=== PATIENT | female | born 1960 | race Caucasian/White ===

== ENCOUNTER 2020-02-26 14:58 | Outpatient (REF) | payer OTHER, SELFPAY | END 2020-02-26 14:59 | disposition home or self-care (01) | LOC: HO.BBR 14:58 | PROVIDERS: PCP Family Medicine; Visit Provider Internal Medicine | DX: Z13.89 Encounter for screening for other disorder (principal) ==

== ENCOUNTER 2020-02-26 15:59 | Outpatient (REF) | payer SELFPAY ==
[2020-02-26 16:51] LABS: Cholesterol 202 mg/dL
== END 2020-02-26 16:00 | disposition home or self-care (01) ==
LOC: HO.LNC 15:59
PROVIDERS: Visit Provider Pathology Anatomic Pathology & Clinical Pathology
DX: Z13.89 Encounter for screening for other disorder (principal)
CPT/HCPCS: 36415; 82465

== ENCOUNTER 2020-09-14 10:24 | Outpatient (REF) | payer BC, SELFPAY | END 2020-09-14 10:25 | disposition home or self-care (01) | LOC: HO.BBR 10:24 | PROVIDERS: PCP Family Medicine; Visit Provider Internal Medicine | DX: Z13.89 Encounter for screening for other disorder (principal) ==

== ENCOUNTER 2021-03-17 11:04 | Outpatient (REF) | payer BC, SELFPAY | END 2021-03-17 11:05 | disposition home or self-care (01) | LOC: HO.BBR 11:04 | PROVIDERS: Visit Provider Internal Medicine | DX: Z13.89 Encounter for screening for other disorder (principal) ==

== ENCOUNTER 2021-08-16 10:50 | Outpatient (REF) | payer BC, SELFPAY | END 2021-08-16 10:51 | disposition home or self-care (01) | LOC: HO.BBR 10:50 | PROVIDERS: Visit Provider Internal Medicine | DX: Z13.89 Encounter for screening for other disorder (principal) ==

== ENCOUNTER 2022-01-09 10:44 | Outpatient (REF) | payer BC, SELFPAY | END 2022-01-09 10:45 | disposition home or self-care (01) | LOC: HO.BBR 10:44 | PROVIDERS: Visit Provider Internal Medicine | DX: Z13.89 Encounter for screening for other disorder (principal) ==

== ENCOUNTER 2022-06-12 10:50 | Outpatient (REF) | payer BC, SELFPAY | END 2022-06-12 10:51 | disposition home or self-care (01) | LOC: HO.BBR 10:50 | PROVIDERS: Visit Provider Internal Medicine | DX: Z13.89 Encounter for screening for other disorder (principal) ==

== ENCOUNTER 2023-01-22 13:47 | Outpatient (REF) | payer OTHER, SELFPAY | END 2023-01-22 13:48 | disposition home or self-care (01) | LOC: HO.BBR 13:47 | PROVIDERS: Visit Provider Internal Medicine | DX: Z13.89 Encounter for screening for other disorder (principal) ==

== ENCOUNTER 2023-07-23 13:16 | Outpatient (REF) | payer MEDICARE, SELFPAY | END 2023-07-23 13:17 | disposition home or self-care (01) | LOC: HO.BBR 13:16 | PROVIDERS: Visit Provider Internal Medicine | DX: Z13.89 Encounter for screening for other disorder (principal) ==

== ENCOUNTER 2023-08-21 11:23 | Outpatient (REF) | payer MEDICARE, SELFPAY | END 2023-08-21 11:24 | disposition home or self-care (01) | LOC: HO.BBR 11:23 | PROVIDERS: Visit Provider Internal Medicine | DX: Z13.89 Encounter for screening for other disorder (principal) ==

== ENCOUNTER 2024-03-26 09:43 | Outpatient (REF) | payer MEDICARE, SELFPAY ==
--- OUTSIDE RECORDS SUMMARY | 2024-03-26 10:04 | XMS_ITS | Encounter Summary ---
Author Organization [facility] Address [id number] [place] [phone] Care Team Providers Care Laborer [employer] Name Role Phone Beverly Tineo DO Primary Care Provider + Reason for Visit * Reason Onset Date Comments Request For Order(s) 03/17/2024 reg Encounter Details Date Type Department Care Team (Late st Contact Info) Description 03/17/2024 Telephone [facility] Hematology Oncology [address] [place] [phone] Gabriel Tripp MD [address] [place] [address] Request For Order(s) (reg) Social History Tobacco Use Types Packs/Day Years Used Date Smoking Tobacco: Never Smokeless Tobacco: Never Alcohol Use Standard Drinks/Week Comments Yes 0 (1 standard drink = 0.6 oz pur e alcohol) Comments Unknown Sex and Gender Information Value Date Recorded Sex Assigned at Not on file Legal Sex Female 6:44 PM EST Gender Identity Not on file Sexual Orientation Not on file documented as of this encounter Progress Notes * Scar Gilmore MA - 03/17/2024 10:14 AM EST Returned call to pt, informed her that new phlebotomy order has been faxed over. * Diane Ring - 03/17/2024 9:09 AM EST Pt calling she gets phlebotomys every 6 months, [facility] needs new order please send out thank you documented in this encounter Plan of Treatment Upcoming Encounters Date Type Department Care Team (Late st Contact Info) Description 08/20/2024 10:00 AM EDT Office Visit [facility] Hematology Oncology [address] [place] [phone] Gabriel Tripp MD [address] [place] [address] documented as of this encounter Visit Diagnoses Not on filedocumented in this encounter Care Teams Laborer [employer] Relationship Specialty Start Date End Date Beverly Tineo DO [address] [place] [address] PCP - General 08/31/22 documented as of this encounter
--- OUTSIDE RECORDS SUMMARY | 2024-03-26 10:04 | XMS_ITS | Encounter Summary ---
Author Organization [facility] Address [address] [place] [phone] Care Team Providers Care Table Assembler Name Role Phone Beverly Tineo DO Primary Care Provider + Encounter Details Date Type Department Care Team ([facility] st Contact Info) Description 03/31/2022 Orders Only Anesthesia [address] [place] [address] Heather Araujo, MEAT TRIMMER [address] [place] [phone] Social History Tobacco Use Types Packs/Day Years Used Date Smoking Tobacco: Former Cigarettes Comments:Quit 34 years ago Alcohol Use Standard Drinks/Week Comments Yes 0 (1 standard drink = 0.6 oz pur e alcohol) socially Comments Unknown Sex and Gender Information Value Date Recorded Sex Assigned at Not on file Legal Sex Female 10:56 AM EDT Gender Identity Not on file Sexual Orientation Not on file COVID-19 Exposure Response Date Recorded In the last 10 days, have yo u been in contact with someone who was confirmed or suspected to have Coronavirus/COVID-19? No / Unsure 03/31/2022 7:59 AM EST documented as of this encounter Plan of Treatment Not on file documented as of this encounter Visit Diagnoses Not on filedocumented in this encounter Care Teams Table Assembler Relationship Specialty Start Date End Date Beverly Tineo DO [address] [place] [phone] PCP - General Family Medicine 07/12/22 documented as of this encounter
--- OUTSIDE RECORDS SUMMARY | 2024-03-26 10:04 | XMS_ITS | Clinical Summary ---
Author Organization [facility] Address [address] [place] [phone] Phone Care Team Providers Care Table Keeper Name Role Phone Beverly Tineo Primary Care Provider + Allergies No known active allergies Medications divalproex (DEPAKOTE DR) 250 mg delayed release tablet Take 1 tablet (250 mg total) by mouth 2 (two) times daily. 250mg am 500pm 3 Active colestipoL (COLESTID) 1 gram tabletIndications :Change in bowel function,Fecal smearing,Full incontinence of feces,Fecal urgency Take 1 tablet (1 g total) by mouth 2 (two) times daily. 60 tablet 3 3 Active cholestyramine (QUESTRAN) 4 gram powderIndications :Fecal smearing,Full incontinence of feces,Fecal urgency,Change in bowel function Take 1 packet (4 g total) by mouth 2 (two) times daily with breakfast and dinner. 368.76 g 1 3 Active Active Problems No known active problems Social History Tobacco Use Types Packs/Day Years Used Date Smoking Tobacco: Former Cigarettes Q uit: 1988 Smokeless Tobacco: Never Tobacco Cessation:Counseling Given: Not Answered Comments:Quit 34 years ago Alcohol Use Standard Drinks/Week Comments Yes 0 (1 standard drink = 0.6 oz pur e alcohol) socially Interpersonal Safety Answer Date Record ed Is there anyone in your life that is hurting or threatening you in anyway? Not on file 05/16/2022 Physical Indicators of Abuse No evidence of phys ical abuse 05/16/2022 Comments Unknown Sex and Gender Information Value Date Recorded Sex Assigned at Not on file Legal Sex Female 10:56 AM EDT Gender Identity Not on file Sexual Orientation Not on file Last Filed Vital Signs Vital Sign Reading Time Taken Comments Blood Pressure 122/62 01/17/2023 10:04 AM EST Pulse 74 01/17/2023 10:04 AM EST Temperature 36.1 ??C (97 ??F) 01/17/2023 10:04 AM EST Respiratory Rate 10 04/19/2022 11:00 AM EDT Oxygen Saturation 98% 01/17/2023 10:04 AM EST Inhaled Oxygen Concentration - - Weight 75.3 kg (166 lb) 01/17/2023 10:04 AM EST Height 172.7 cm (5' 8 ) 01/17/2023 10:04 AM EST Body Mass Index 25.24 01/17/2023 10:04 AM EST Plan of Treatment Health Maintenance Due Date Last Done Comments HIV screening 1971 Hepatitis C screening 02/15/1976 Tetanus adult (Td q 10,TDAP once) 1978 Lipid disorder screening 1998 Diabetes screening 2003 Shingles vaccine (Shingrix) (1 of 2 - Shingrix (RZV) 2 Dose Standard Series) 02/15/2008 Pneumococcal Vaccine (50+ years) (1 of 1 - PCV) 2023 Influenza vaccine 09/06/2023 Covid-19 vaccine series ( season) 2023 05/13/2020, 04/15/2020 Breast cancer screening 06/10/2025 06/11/19 24, 06/11/2023, 06/07/2022, Additional history exists Colon cancer screening, Colonoscopy 10/10/2027 10/09/2017, 06/21/2016 RSV Discussion (1 - 1-dose 75+ series) 2033 Osteoporosis screening (bone density) Completed 06/07/2022, 06/07/2022 Cervical cancer screening Discontinued Meningococcal Vaccine Aged Out No kayli barbi eligible based on patient's age to complete this topic Medical Devices Implanted Type Area Flatwork Ironer Device Identifier Shelf Expiration Date Model / Serial / Lot Extension Percutaneous Extension Axonics 9009 - [id number] Implanted:Qty: 1 on 04/05/2022 by Raisa Che MD PhD at [facility] Implant Midline: BACK LOWER [employer] 06/09/2023 9009 / / [id number] Stimulator External Axonics Trial Stimulator - [id number] Implanted:Qty: 1 on 04/05/2022 by Raisa Che MD PhD at [facility] Implant Midline: [employer]OWER [employer] 04/06/2022 1601 / / [id number] Lead Tined Lead Kit Axonics - [id number] Implanted:Qty: 1 on 04/05/2022 by Raisa Che MD PhD at [facility] Implant Midline: BACK [employer]OWER [employer] 09/29/2024 1201 / / [id number] Neurostimulator Non Rechargeable Axonics F15 - [id number] Implanted:Qty: 1 on 04/19/2022 by Raisa Che MD PhD at [address] Implant Midline: Sacrum [employer] [id number] 12/20/2022 4101 / [id number] / [id number] Procedures Procedure Name Priority Date/Time Associated Diagnosis Comments COLONOSCOPY (IMAGES) Routine 10/09/2017 from Last 3 Months or Most Recently Relevant to Health Maintenance Results * Colonoscopy (10/09/2017) us Historical Provider GI PROCEDURE ORDERABLES l Result from Last 3 Months or Most Recently Relevant to Health Maintenance Insurance Member Subscriber Plan / Payer (Ef fective 2021-Present) Name:Ondina Soto Relation to Subscriber:Self Name:Ondina Soto Payer ID:[id number] (NAIC) Type:Not on file Address: [address] Member Subscriber Plan / Payer (Ef fective 2021-Present) Name:Ondina Soto Relation to Subscriber:Self Name:JuvenalfélixMalu valdovinosne Payer ID:[id number] (NAIC) Type:Not on file Address: [address] Member Subscriber Plan / Payer ( fective 2021-Present) Name:Ondina Soto Relation to Subscriber:Self Name:Ondina Soto Payer ID:[id number] (NAIC) Type:Not on file Address: [address] Care Teams Table Keeper Relationship Specialty Start Date End Date Beverly Tineo DO [address] [place] [phone] PCP - General Family Medicine 07/12/22
--- OUTSIDE RECORDS SUMMARY | 2024-03-26 10:04 | XMS_ITS | Encounter Summary ---
Author Organization [facility] Address [address] [place] [address] Care Team Providers Care Core Machine Tender Name Role Phone Beverly Tineo DO Primary Care Provider [phone] Adriano Schwab MD Unavailable [phone] Encounter Details Date Type Department Care Team (Late st Contact Info) Description 07/13/2022 Scanned Document [facility] [address] [place] [address] Beverly Tineo DO [address] [place], [place] [phone] Digestive Disease 07/12/22 Social History Tobacco Use Types Packs/Day Years Used Date Smoking Tobacco: Former Cigarettes 0.5 15 0 07/06/1973 - 07/06/1988 Smokeless Tobacco: Never Alcohol Use Standard Drinks/Week Comments Yes 1 (1 standard drink = 0.6 oz pur e alcohol) PHQ-2 Answer Date Recorded Patient Health Questionnaire-2 Score 0 04/06/2022 Comments No Sex and Gender Information Value Date Recorded Sex Assigned at Not on file Legal Sex Female 11:27 AM EDT Gender Identity Not on file Sexual Orientation Not on file documented as of this encounter Plan of Treatment Upcoming Encounters Date Type Department Care Team (Late Contact Info) Description 04/24/2024 8:00 AM EDT Office Visit [facility] [address] [place], [place] [phone] Beverly Tineo DO [address] [place] [address] Follow up in about 1 year (around 04/09/2024) for Preventive Adult Physical. documented as of this encounter Visit Diagnoses Not on filedocumented in this encounter Additional Health Concerns Assessment Noted Time PHQ-9 Depression Total Score: 1 04/07/19 23 2:04 PM EST documented as of this encounter Care Teams Core Machine Tender Relationship Specialty Start Date End Date Beverly Tineo DO [address] [place] [address] PCP - General Internal Medicine 09/08/20 Adriano Schwab MD [address] [facility] [address] [place] [phone] Referring Physician Gastroenterology 04/10/23 documented as of this encounter
--- OUTSIDE RECORDS SUMMARY | 2024-03-26 10:04 | XMS_ITS | Clinical Summary ---
Author Organization [facility] Address [address] [place] [id number] Care Team Providers Care Fur Floor Worker Name Role Phone Beverly Tineo DO Primary Care Provider [phone] Adriano Schwab MD Unavailable [phone] Allergies No known active allergies Medications clobetasoL (TEMOVATE) 0.05 % cream APPLY TWICE A DAY FOR TWO WEEKS TO ANKLES. 11/14/2021 Active Soolantra 1 % cream APPLY TO THE FACE ONCE A DAY 11/15/2021 Active psyllium (Daily Fiber, psyllium-aspart ,) 3.4 gram packet Take 1 packet by mouth 1 (one) time each day. Active oxyCODONE (Roxicodone) 5 mg immediate release tablet 12/13/2022 Acti ve estradioL (Estrace) 0.01 % (0.1 mg/gram) vaginal cream Insert into the vagina 1 (one) time each day if needed. 08/31/2022 Active colestipoL (Colestid) 1 gram tablet Take 1 tablet (1 g total) by mouth twice a day. 07/12/2022 Active cholestyramine (QUESTRAN) 4 gram powder Take 1 packet (4 g total) by mouth. 10/18/2022 Active acetaminophen (TYLENOL) 325 mg oral tablet Take 3 tablets (975 mg total) by mouth every 6 (six) hours if needed. 12/09/2022 Active divalproex (Depakote) 250 mg EC tablet TAKE 1 TABLET IN THE MORNING AND 2 TABLETS AT BEDTIME WITH FOOD 270 tablet 1 11/19/2023 Active Active Problems Problem Noted Date Diagnosed Date Rectal prolapse 12/04/2022 Pelvic pressure in female 02/01/2022 Post-viral cough syndrome 02/01/2022 Personal history of COVID-19 02/01/2022 Aneurysm of splenic artery 04/04/2021 Calcinosis, Raynaud phenomen on, esophageal dysfunction, sclerodactyly, and telangiectasia (CREST) syndrome 04/04/2021 Constipation 04/04/2021 Degeneration of intervertebral disc of lumbar re gion 04/04/2021 Esophageal dysmotility 04/04/2021 Female genital symptoms 04/04/2021 Incontinence of feces 04/04/2021 Microscopic hematuria 04/04/2021 Liver cyst 04/04/2021 Insomnia 04/04/2021 Multinodular goiter 04/04/2021 Seizure disorder (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/HCC) 10/31/2017 Scleroderma 10/31/2017 Immunizations Immunization Administration Dates Next Due INFLUENZA, HIGH DOSE SEASONAL, PRESERVATIVE FREE 11/27/2023 Moderna SARS-CoV-2 Vaccination 05/13/2020,2020 Family History Medical History Relation Name Comments Cancer Father Heart disease Maternal Grandfather Kashif williamson Heart disease Maternal Grandmother Robyn williamson Cancer Mother Irina quinteroic Colon cancer Mother Irina quinteroic Cancer Paternal Grandfather Cancer Paternal Grandmother Relation Name Status Comments Daughter Alive Father Maternal Grandfather Kashif williamson Maternal Grandmother Robyn williamson Mother Irina quinteroic Paternal Grandfather Paternal Grandmother Son 1 Alive Son 2 Alive Social History Tobacco Use Types Packs/Day Years Used Date Smoking Tobacco: Former Cigarettes 0.5 15 0 07/06/1973 - 07/06/1988 Smokeless Tobacco: Never Tobacco Cessation:Counseling Given: Not Answered Alcohol Use Standard Drinks/Week Comments Yes 1 (1 standard drink = 0.6 oz pur e alcohol) Humiliation, Afraid, Rape, and Kick questionnair e Answer Date Recorded Within the last year, have y ou been afraid of your partner or ex-partner? No 04/10/2023 Emotionally Abused Not on file 04/10/2023 Physically Abused Not on file 04/10/2023 Sexually Abused Not on file 04/10/2023 Overall Financial Resource Strain (CARDIA) Answe r Date Recorded How hard is it for you to pa y for the very basics like food, housing, medical care, and heating? Not hard at all 04/10/2023 PHQ-2 Answer Date Recorded Patient Health Questionnaire-2 Score 0 04/10/2023 Hunger Vital Sign Answer Date Recorded Within the past 12 months, y ou worried that your food would run out before you got the money to buy more. Never true 04/10/19 24 Ran Out of Food in the Last Year Not on file 04/10/2023 PRAPARE - Transportation Answer Date Re corded In the past 12 months, has l ack of transportation kept you from medical appointments or from getting medications? No 04/10/2023 Lack of Transportation (Non-Medical) Not on file 04/10/2023 Housing Stability Vital Sign Answer Enrique e Recorded Unable to Pay for Housing in the Last Year Not o n file 04/10/2023 Number of Places Lived in the Last Year Not on f ile 04/10/2023 In the last 12 months, was t here a time when you did not have a steady place to sleep or slept in a long term (including now)? No 04/10/2023 Comments No Sex and Gender Information Value Date Recorded Sex Assigned at Not on file Legal Sex Female 11:27 AM EDT Gender Identity Not on file Sexual Orientation Not on file Last Filed Vital Signs Vital Sign Reading Time Taken Comments Blood Pressure 118/72 04/10/2023 8:00 AM EST Pulse 78 04/10/2023 8:00 AM EST Temperature 36.6 ??C (97.9 ??F) 04/10/2023 8:00 AM ES T Respiratory Rate 16 04/10/2023 8:00 AM EST Oxygen Saturation 99% 04/10/2023 8:00 AM EST Inhaled Oxygen Concentration - - Weight 76.7 kg (169 lb) 04/10/2023 8:00 AM EST Height 171.5 cm (5' 7.52 ) 04/10/2023 8:00 AM ES T Body Mass Index 26.06 04/10/2023 8:00 AM EST Plan of Treatment Upcoming Encounters Date Type Department Care Team (Late st Contact Info) Description 04/24/2024 8:00 AM EDT Office Visit [facility] [place] [address] [facility] [place] [address] Beverly Tineo DO [address] [place] [address] Follow up in about 1 year (around 04/09/2024) for Preventive Adult Physical. Scheduled Referrals Name Type Priority Associated Diagnoses Order Schedule Ambulatory referral to Therapy Outpatient Referral Routine Spinal stenosis at L4-L5 level Bilateral leg pain Expected: 11/24/2021, Expires: 11/24/2022 Ambulatory referral to Therapy Outpatient Referral Routine Anal sphincter tear (healed) (nontraumatic) (old) Expected: 08/11/2020, Expires: 08/11/2021 Health Maintenance Due Date Last Done Comments CT Colonography 1958 FIT-DNA 1958 FIT 1958 FOBT 1960 Sigmoidoscopy 1958 Hepatitis A Vaccines (1 of 2 - Risk 2-dose series) 1977 Pneumococcal Vaccine: 50+ Years (1 of 2 - PCV) 1977 Tdap and Td Vaccines Adult 1977 Zoster Vaccines (1 of 2) 02/15/2008 RSV 60+ (1 - Risk 60-74 years 1-dose series) 2018 COVID-19 Vaccine ( season) 2023 05/13/2020, 04/15/2020 Fall Risk Screening 04/09/2024 04/10/2023 Medicare Annual Wellness Visit 04/09/2024 04/10/2023, 04/07/2022, 04/04/2021 Mammogram 06/10/2024 06/11/2023, 05/0 04/2022, 12/01/2020, Additional history exists Colonoscopy 10/10/2027 10/09/2017, 06/05, 06/21/2016 Colorectal Cancer Screening 10/10/2027 Osteoporosis Screening Completed 06/07/2022 Hepatitis C Screening Completed 04/17/2023 Influenza Vaccine Completed 11/27/2023 HIB Vaccines Aged Out No longer eligi ble based on patient's age to complete this topic HPV Vaccines Aged Out No longer eligi ble based on patient's age to complete this topic IPV Vaccines Aged Out No longer eligi ble based on patient's age to complete this topic Meningococcal Vaccine Aged Out No kayli barbi eligible based on patient's age to complete this topic RSV <20 Months Aged Out No longer kaia gible based on patient's age to complete this topic Procedures Procedure Name Priority Date/Time Associated Diagnosis Comments CBC WITH AUTO DIFFERENTIAL Routine 12/31/2023 11:54 AM EST Hereditary hemochromatosis (HCC) TIBC Routine 12/31/2023 11:54 AM EST Hereditary hemochromatosis (HCC) IRON Routine 12/31/2023 11:54 AM EST Hereditary hemochromatosis (HCC) FERRITIN Routine 12/31/2023 11:54 AM EST Hereditary hemochromatosis (HCC) CBC AND DIFFERENTIAL Routine 12/31/2023 11:54 AM EST Hereditary hemochromatosis (HCC) LIVER FUNCTION PANEL Routine 12/31/2023 11:54 AM EST Hereditary hemochromatosis (HCC) MG BREAST SCREENING TOMOSYNTHESIS BILATERAL Routine 06/11/2023 7:09 AM EDT Encounter for screening mammogram for malignant neoplasm of breast HEPATITIS C ANTIBODY, HIGH RISK SCREENING, W/ RFX TO HCV RNA Routine 04/17/2023 7:52 AM EDT Need for hepatitis C screening test DEXA BONE DENSITY Routine 06/07/2022 1:4 2 PM EDT Asymptomatic postmenopausal state from Last 3 Months or Most Recently Relevant to Health Maintenance Results * (ABNORMAL) TIBC (12/31/2023 11:54 AM EST) Transferrin 186(L) 250 - 380 mg/dL LAB CHEMISTRY METHOD 12/31/2023 4:37 PM EST [facility] TIBC 260(L) 297 - 504 ug/dL 12/31/2023 4:37 PM EST [facility] Blood Venous blood / Unknown Venipuncture / Unknown 12/31/2023 11:54 AM EST 12/31/2023 11:54 AM EST Garbiel Tripp MD LAB BLOOD ORDERABLES Final R esult LAB[facility] CT:[id number] [place] [address] * Liver Function Panel (12/31/2023 11:54 AM EST) Total Protein 6.6 5.7 - 8.2 g/dL LAB CHEMISTRY METHOD 12/31/2023 4:39 PM EST [facility] Comment:Please note referenc e range changes effective 12/18/2023. Albumin Level 4.2 3.2 - 4.8 g/dL LAB CHEMISTRY METHOD 12/31/2023 4:39 PM EST [facility] Comment:Please note referenc e range changes effective 12/18/2023. Total Bilirubin 0.6 0.1 - 1.2 mg/dL LAB CHEMISTRY METHOD 12/31/2023 4:39 PM EST [facility] Comment:The [employer] CH Tota l Bilirubin_2 (TBil_2) assay is based on a chemical oxidation method using vanadate as an oxidizing agent. Bilirubin, Direct 0.2 <=0.3 mg/dL LAB CHEMISTRY METHOD 12/31/2023 4:39 PM EST [facility] Comment: The [employer] Direct Bilirubin_2 (DBil_2) assay is based on a chemical oxidation method using vanadate as an oxidizing agent. Please note reference range changes effective 12/18/2023. ALT 12 10 - 49 U/L LAB CHEMISTRY METHOD 12/31/2023 4:39 PM EST [facility] Comment:Please note referenc e range changes effective 12/18/2023. AST 16 <34 U/L LAB CHEMISTRY METHOD 12/31/2023 4:39 PM EST [facility] Comment:Please note referenc e range changes effective 12/18/2023. Alkaline Phosphatase 48 28 - 130 U/L LAB CHEMISTRY METHOD 12/31/2023 4:39 PM EST [facility] Comment:Please note referenc e range changes effective 12/18/2023. Blood Venous blood / Unknown Venipuncture / Unknown 12/31/2023 11:54 AM EST 12/31/2023 11:54 AM EST us Gabriel Tripp MD LAB BLOOD ORDERABLES Final R esult LAB[facility] CT:[id number] [place] [address], * (ABNORMAL) CBC auto differential (12/31/2023 11:54 AM EST) Auto WBC 4.9 4.5 - 11.5 cells X 10*3/uL 12/31/2023 4:16 PM EST [facility] RBC 4.27 4.00 - 5.40 cells X 10*6/uL 12/31/2023 4:16 PM EST [facility] Hemoglobin 13.5 12.0 - 15.0 g/dL 12/31/2023 4:16 PM EST [facility] Hematocrit 41.1 35.0 - 49.0 % 12/31/2023 4:16 PM EST [facility] MCV 96.3(H) 80.0 - 94.0 fL 12/31/2023 4:16 PM EST [facility] MCH 31.6 26.0 - 32.0 pg 12/31/2023 4:16 PM EST [facility] MCHC 32.8 32.0 - 37.0 g/dL 12/31/2023 4:16 PM EST [facility] RDW (CV) 12.9 11.5 - 14.5 % 12/31/2023 4:16 PM EST [facility] RDW (SD) 46.0 36.0 - 48.8 fL 12/31/2023 4:16 PM EST [facility] Platelets 200 150 - 450 cells X 10*3/uL 12/31/2023 4:16 PM EST [facility] MPV 11.1 9.5 - 12.3 fL 12/31/2023 4:16 PM EST [facility] Granulocytes % 64.3 % 12/31/2023 4:16 PM EST [facility] Comment:Percent cell count r eference ranges have been removed. Per the [employer] recommendations, these ranges should not be reported when absolute cell count reference ranges are reported as this can lead to misinterpretation of CBC data. Immature Granulocytes % 0.2 % 12/31/2023 4:16 PM [facility] Comment:Immature Granulocyte s (percent and absolute counts) include neutrophilic metamyelocytes, myelocytes, and promyelocytes. Lymphocytes % 22.1 % 12/31/2023 4:16 PM EST [facility] Monocytes % 8.5 % 12/31/2023 4:16 PM EST [facility] Eosinophils % 3.7 % 12/31/2023 4:16 PM EST [facility] Basophils % 1.2 % 12/31/2023 4:16 PM EST [facility] Gran # 3.1 2.3 - 8.6 cells X 10*3/uL 12/31/2023 4:16 PM [facility] Comment:Please Note: Gran # is equivalent to ANC. IMM GRAN # 0.01 0.00 - 0.05 cells X 10*3/uL 12/31/2023 4:16 PM EST [facility] Eosinophils # 0.2 0.0 - 0.4 cells X 10*3/uL 12/31/2023 4:16 PM EST [facility] Lymphocytes # 1.1 0.8 - 4.8 cells X 10*3/uL 12/31/2023 4:16 PM EST [facility] MONO # 0.4 0.1 - 1.3 cells X 10*3/uL 12/31/2023 4:16 PM EST [facility] BASOPHIL # 0.1 0.0 - 0.2 cells X 10*3/uL 12/31/2023 4:16 PM [facility] Blood Venous blood / Unknown Venipuncture / Unknown 12/31/2023 11:54 AM EST 12/31/2023 11:54 AM EST Gabriel Tripp MD LAB BLOOD ORDERABLES Final R esult Performing Organization Address [facility] de Phone Number LABORATORY SERVICES CT:[id number] [place] [address], * Iron (12/31/2023 11:54 AM EST) Iron 150 50 - 170 ug/dL LAB CHEMISTRY METHOD 12/31/2023 4:39 PM EST [facility] Comment:Please note referenc e range changes effective 12/18/2023. Blood Venous blood / Unknown Venipuncture / Unknown 12/31/2023 11:54 AM EST 12/31/2023 11:54 AM EST Gabriel Tripp MD LAB BLOOD ORDERABLES Final R esult Performing Organization Address [facility] de Phone Number LABORATORY SERVICES CT:[id number] [place] [phone], [place] * Ferritin (12/31/2023 11:54 AM EST) Pathologist [facility] Ferritin 39.6 7.3 - 270.7 ng/mL LAB CHEMISTRY METHOD 12/31/2023 4:34 PM EST [facility] Comment:Please note referenc e range changes effective 12/18/2023. Blood Venous blood / Unknown Venipuncture / Unknown 12/31/2023 11:54 AM EST 12/31/2023 11:54 AM EST Gabriel Tripp MD LAB BLOOD ORDERABLES Final R esult Performing Organization Address [facility] de Phone Number LABORATORY SERVICES CT:[id number] [place] [phone], [place] * Mammogram Breast Screening Bilateral (06/11/2023 7:09 AM EDT) Anatomical Region Laterality Modality Breast Bilateral Mammography 06/12/2023 4:44 PM EDT Impressions 06/12/2023 4:47 PM EDT No evidence of malignancy. Annual screening mammogram is recommended. BREAST: ??Right RECOMMENDATION: ??Annual screening mammogram in 1 year BREAST: ??Left RECOMMENDATION: ??Annual screening mammogram in 1 year BI RADS : ??2, Benign Narrative 06/12/2023 4:47 PM EDT PROCEDURE: ??MG BREAST SCREENING TOMOSYNTHESIS BILATERAL CLINICAL INFORMATION: ??Encounter for screening mammogram for malignant neoplasm of breast, Breast cancer screening PROTOCOL: ??Routine mammogram including craniocaudal and mediolateral oblique views with Computer Aided Detection. Tomographic views were also obtained. COMPARISON: Prior exams dating back to 2018 BREAST DENSITY: There are scattered areas of fibroglandular density. FINDINGS: No suspicious mass, architectural distortion or calcifications. No significant interval change. Procedure Note Mroaima Sales MD - 06/12/2023 PROCEDURE: MG BREAST SCREENING TOMOSYNTHESIS BILATERAL CLINICAL INFORMATION: Encounter for screening mammogram for malignantneoplasm of breast, Breast cancer screening PROTOCOL: Routine mammogram including craniocaudal and mediolateraloblique views with Computer Aided Detection. Tomographic views were alsoobtained. COMPARISON: Prior exams dating back to 2018 BREAST DENSITY: There are scattered areas of fibroglandular density. FINDINGS: No suspicious mass, architectural distortion or calcifications. Nosignificant interval change. IMPRESSION: No evidence of malignancy. Annual screening mammogram is recommended. BREAST: Right RECOMMENDATION: Annual screening mammogram in 1 year BREAST: Left RECOMMENDATION: Annual screening mammogram in 1 year BI RADS : 2, Benign Beverly Tineo DO IMG BI PROCEDURES Final Re sult * Hepatitis C Antibody, Screening w/ RFX to HCV RNA (04/17/2023 7:52 AM EDT) Hep C Antibody, IgG Non-React annie Non-React annie 04/17/2023 12:14 PM EDT LAB[facility] Comment: Performed on Siemens Advia Centaur Not infected with HCV, unless recent infection is suspected or other evidence exists to indicate HCV infection. This assay can be affected by patients taking high dose biotin supplements (>5mg/day). An eight hour wait time or washout period is necessary for accurate test results following high doses of biotin Blood Venous blood / Unknown Venipuncture / Unknown 04/17/2023 7:52 AM EDT 04/17/2023 7:52 AM EDT us Beverly Tineo DO LAB BLOOD ORDERABLES Final Result LAB[facility]ORY [facility] CT:[id number] [place] [address], * DEXA Bone Density (06/07/2022 1:42 PM EDT) Anatomical Region Laterality Modality Other 06/07/2022 1:50 PM EDT Impressions 06/07/2022 1:50 PM EDT The bone density is within the normal range. [employer] (WHO) BONE DENSITY CRITERIA FOR OSTEOPOROSIS: T-SCORE =the standard deviation (SD) from the mean for healthy young adults. T-Score >-1 SD: Normal - maintain bone health via exercise and calcium. T-Score between -1.0 SD & -2.4 SD: ??Low bone mass or Osteopenia - Prevention is indicated. T-Score <-2.4 SD: ??Osteoporosis - Treatment indicated. T-Score <-3.5 SD: ??Severe osteoporosis with fragility fracture - Treatment is indicated. Narrative 06/07/2022 1:50 PM EDT PROCEDURE: ??DEXA BONE DENSITY CLINICAL INDICATION: Asymptomatic postmenopausal state, post-menopausal osteoporosis prevention, PROTOCOL: Dual energy absorptiometry of the Lumbar spine and left hip were performed. Bone density exam performed on a new [employer] Horizon W, DEXA scanner. ??Please note with a new DEXA scanner, small measurement variances may occur between scanners. ??Serial future exams ??will be compared to the new baseline exam on the new scanner. COMPARISON: None. FINDINGS: L1-L4: The bone density is 1.037 for a T score of -0.1. Left Proximal Hip: The bone density is 0.906 for a T score of -0.3. Left Femoral Neck: The bone density is 0.834 for a T score of -0.1. Procedure Note Roni Perera MD - 06/07/2022 PROCEDURE: DEXA BONE DENSITY CLINICAL INDICATION: Asymptomatic postmenopausal state, post- menopausalosteoporosis prevention, PROTOCOL: Dual energy absorptiometry of the Lumbar spine and left hip wereperformed. Bone density exam performed on a new [employer] Horizon W, DEXA scanner.Please note with a new DEXA scanner, small measurement variances may occurbetween scanners. Serial future exams will be compared to the newbaseline exam on the new scanner. COMPARISON: None. FINDINGS: L1-L4: The bone density is 1.037 for a T score of -0.1. Left Proximal Hip: The bone density is 0.906 for a T score of -0.3. Left Femoral Neck: The bone density is 0.834 for a T score of -0.1. IMPRESSION: The bone density is within the normal range. [employer] (WHO) BONE DENSITY CRITERIA FOR OSTEOPOROSIS: T-SCORE =the standard deviation (SD) from the mean for healthy youngadults. T-Score >-1 SD: Normal - maintain bone health via exercise and calcium. T-Score between -1.0 SD & -2.4 SD: Low bone mass or Osteopenia -Prevention is indicated. T-Score <-2.4 SD: Osteoporosis - Treatment indicated. T-Score <-3.5 SD: Severe osteoporosis with fragility fracture - Treatmentis indicated. Beverly Tineo DO IM DXA PROCEDURES Final R esult from Last 3 Months or Most Recently Relevant to Health Maintenance Insurance [place] [address] Care Teams Fur Floor Worker Relationship Specialty Start Date End Date Beverly Tineo DO [address] [place] [address] PCP - General Internal Medicine 09/08/20 Adriano Schwab MD [address] [place] [phone] Referring Physician Gastroenterology 04/10/23
--- OUTSIDE RECORDS SUMMARY | 2024-03-26 10:04 | XMS_ITS | Encounter Summary ---
Author Organization [facility] Address [address] [place] [address] Care Team Providers Care Digital Engineer Name Role Phone Beverly Tineo DO Primary Care Provider [phone] Adriano Schwab MD Unavailable [phone] Encounter Details Date Type Department Care Team (Late st Contact Info) Description 08/15/2023 Lab Requisition [facility] [address] [place] [address] Sonja Lopez, DOPE FIRER [address] [id number] Social History Tobacco Use Types Packs/Day Years [...] place to sleep or slept in a retirement (including now)? No 04/10/2023 Comments No Sex and Gender Information Value Date Recorded Sex Assigned at Not on file Legal Sex Female 11:27 AM EDT Gender Identity Not on file Sexual Orientation Not on file documented as of this encounter Plan of Treatment Upcoming Encounters Date Type Department Care Team (Late st Contact Info) Description 04/24/2024 8:00 AM EDT Office Visit [facility] [place] [address] [place] [address] Beverly Tineo DO [address] [place] [address] Follow up in about 1 year (around 04/09/2024) for Preventive Adult Physical. documented as of this encounter Procedures Procedure Name Priority Date/Time Associated Diagnosis Comments WOUND CULTURE,WITH GRAM STAIN Routine 08/15/2023 12:36 PM EDT documented in this encounter Results * (ABNORMAL) Wound Culture,With Gram Stain (08/15/2023 12:36 PM EDT) Wound Culture Moderate Growth Coagulase negative Staphylococcus (A) 08/17/2023 2:01 PM EDT LAB[facility]ORY [facility] Comment: Three colony types present No sensitivity performed per lab policy Gram Stain No WBC's seen 08/17/2023 2:01 PM EDT LAB[facility] Gram Stain Rare Epithelial cells per low power field 08/17/2023 2:01 PM EDT LAB[facility] Gram Stain No organisms observed 08/17/2023 2:01 PM EDT LAB[facility] Comment:Superficial specimen - no evidence of inflammation- not cultured for anaerobes. Swab Chin structure / Unknown 08/15/2023 12:36 PM EDT 08/15/2023 7:30 PM EDT us Sonja Lopez DOPE FIRER LAB MICROBIOLOGY - GENERAL ORDER DOV Final Result LAB[facility]ORY SERVICES CT:[id number] [place] [address] documented in this encounter Visit Diagnoses Not on filedocumented in this encounter Additional Health Concerns Assessment Noted Time PHQ-9 Depression Total Score: 3 04/10/19 24 8:09 AM EST documented as of this encounter Care Teams Digital Engineer Relationship Specialty Start Date End Date Beverly Tineo DO [address] [place] [address] PCP - General Internal Medicine 09/08/20 Adriano Schwab MD [address] [place] [phone] Referring Physician Gastroenterology 04/10/23 documented as of this encounter
--- OUTSIDE RECORDS SUMMARY | 2024-03-26 10:04 | XMS_ITS | Encounter Summary ---
Author Organization [facility] [facility] Address [address] [place] [address] Care Team Providers Care Rn Manager Name Role Phone Beverly Tineo DO Primary Care Provider +1- [phone] Adriano Schwab MD Unavailable [phone] Encounter Details Date Type Department Care Team (Late st Contact Info) Description 07/24/2023 Scanned Document [facility] [place] [address] [place], [place] [address] Beverly Tineo DO [address] [place], [place] [address] [facility] 07/24/23 Social History Tobacco Use Types Packs/Day Years [...] place to sleep or slept in a half-way (including now)? No 04/10/2023 Comments No Sex and Gender Information Value Date Recorded Sex Assigned at Not on file Legal Sex Female 11:27 AM EDT Gender Identity Not on file Sexual Orientation Not on file documented as of this encounter Plan of Treatment Upcoming Encounters Date Type Department Care Team (Late st Contact Info) Description 04/24/2024 8:00 AM EDT Office Visit [facility] Primary [facility] [address] [place] [address] Beverly Tineo DO [address] [place] [address] Follow up in about 1 year (around 04/09/2024) for Preventive Adult Physical. documented as of this encounter Visit Diagnoses Not on filedocumented in this encounter Additional Health Concerns Assessment Noted Time PHQ-9 Depression Total Score: 3 04/10/19 24 8:09 AM EST documented as of this encounter Care Teams Rn Manager Relationship Specialty Start Date End Date Beverly Tineo DO [address] [place] [address] PCP - General Internal Medicine 09/08/20 Adriano Schwab MD [address] [place] [phone] Referring Physician Gastroenterology 04/10/23 documented as of this encounter
--- OUTSIDE RECORDS SUMMARY | 2024-03-26 10:04 | XMS_ITS | Encounter Summary ---
Author Organization [facility] Address [address] [place] [address] Care Team Providers Care Title Processor Name Role Phone Beverly Tineo Primary Care Provider + Reason for Visit * Reason Comments Medication Refill Encounter Details Date Type Department Care Team (Late st Contact Info) Description 08/03/2022 Refill [facility] [address] [facility], [address] [place] [address] Adriano Schwab MD [address] [place], [place] [phone] Medication Refill Social History Tobacco Use Types Packs/Day Years Used Date Smoking Tobacco: Former Cigarettes Q uit: 1988 Smokeless Tobacco: Never Comments:Quit 34 years ago Alcohol Use Standard [...] documented as of this encounter Visit Diagnoses Diagnosis Change in bowel function Other symptoms involving digestive system Fecal smearing Full incontinence of feces Fecal urgency documented in this encounter Care Teams Title Processor Relationship Specialty Start Date End Date Beverly Tineo DO [address] [place] [address] PCP - General Family Medicine 07/12/22 documented as of this encounter
--- OUTSIDE RECORDS SUMMARY | 2024-03-26 10:04 | XMS_ITS | Encounter Summary ---
Author Organization [facility] Address [address] [place] [address] Care Team Providers Care Course Developer Name Role Phone Beverly Tineo DO Primary Care Provider +1- [phone] Adriano Schwab MD Unavailable [phone] Encounter Details Date Type Department Care Team (Late st Contact Info) Description 07/26/2022 Scanned Document [facility] [address] [place] [address] Beverly Tineo DO [address] [place], [place] [address] Gastro 07/25/22 Social History Tobacco Use Types Packs/Day Years [...] Description 04/24/2024 8:00 AM EDT Office Visit [facility] [address] [place], [place] [address] Beverly Tineo DO [address] [place] [address] Follow up in about 1 year (around 04/09/2024) for Preventive Adult Physical. documented as of this encounter Visit Diagnoses Not on filedocumented in this encounter Additional Health Concerns Assessment Noted Time PHQ-9 Depression Total Score: 1 04/07/19 23 2:04 PM EST documented as of this encounter Care Teams Course Developer Relationship Specialty Start Date End Date Beverly Tineo DO [address] [place] [address] PCP - General Internal Medicine 09/08/20 Adriano Schwab MD [address] [facility] [address] [place] [address] Referring Physician Gastroenterology 04/10/23 documented as of this encounter
--- OUTSIDE RECORDS SUMMARY | 2024-03-26 10:04 | XMS_ITS | Encounter Summary ---
Author Organization [facility] Address [address] [place] [address] Care Team Providers Care Manager Personnel Selection Name Role Phone Beverly Tineo DO Primary Care Provider +1- [phone] Adriano Schwab MD Unavailable [phone] Encounter Details Date Type Department Care Team (Late st Contact Info) Description 08/21/2023 Scanned Document [facility] Primary Care [place] [address] [place], [place] [address] Beverly Tineo DO [address] [place], [place] [address] Hematology 08/21/23 Social History Tobacco Use Types Packs/Day Years [...] place to sleep or slept in a longterm (including now)? No 04/10/2023 Comments No Sex and Gender Information Value Date Recorded Sex Assigned at Not on file Legal Sex Female 11:27 AM EDT Gender Identity Not on file Sexual Orientation Not on file documented as of this encounter Plan of Treatment Upcoming Encounters Date Type Department Care Team (Late st Contact Info) Description 04/24/2024 8:00 AM EDT Office Visit [facility] Primary [facility] [address] [place] [address] Beverly Tineo DO [address] [place] [address] Follow up in about 1 year (around 04/09/2024) for Preventive Adult Physical. documented as of this encounter Visit Diagnoses Not on filedocumented in this encounter Additional Health Concerns Assessment Noted Time PHQ-9 Depression Total Score: 3 04/10/19 24 8:09 AM EST documented as of this encounter Care Teams Manager Personnel Selection Relationship Specialty Start Date End Date Beverly Tineo DO [address] [place] [address] PCP - General Internal Medicine 09/08/20 Adriano Schwab MD [address] [place] [phone] Referring Physician Gastroenterology 04/10/23 documented as of this encounter
--- OUTSIDE RECORDS SUMMARY | 2024-03-26 10:05 | XMS_ITS | Encounter Summary ---
Author Organization [facility] Address [address] [place] [address] Care Team Providers Care Service Delivery Director Name Role Phone Beverly Tineo DO Primary Care Provider +1- [phone] Adriano Schwab MD Unavailable [phone] Encounter Details Date Type Department Care Team (Late st Contact Info) Description 11/17/2020 Procedure Pass [facility] Radiology, [facility] (Ultrasound) [address] [place] [id number] Social History Tobacco Use Types Packs/Day Years Used Date Smoking Tobacco: Former Smokeless Tobacco: Never Alcohol Use Standard Drinks/Week Comments Yes 0 (1 standard drink = 0.6 oz pur e alcohol) Comments No Sex and Gender Information Value Date Recorded Sex Assigned at Not on file Legal Sex Female 11:27 AM EDT Gender Identity Not on file Sexual Orientation Not on file documented as of this encounter Plan of Treatment Upcoming Encounters Date Type Department Care Team (Late st Contact Info) Description 04/24/2024 8:00 AM EDT Office Visit [facility] Primary Care [place] [address] [place], [place] [address] Beverly Tineo DO [address] [place], [place] [address] Follow up in about 1 year (around 04/09/2024) for Preventive Adult Physical. documented as of this encounter Visit Diagnoses Not on filedocumented in this encounter Additional Health Concerns Infection Onset Date Last Indicated Resolved Time COVID-19 (rule out) 05/30/2021 05/30/2021 05/31/19 22 7:14 PM EDT documented as of this encounter Care Teams Service Delivery Director Relationship Specialty Start Date End Date Beverly Tineo DO [address] [place] [address] PCP - General Internal Medicine 09/08/20 Adriano Schwab MD [address] [facility] [address] [facility] [address] [place] [address] Referring Physician Gastroenterology 04/10/23 documented as of this encounter
--- OUTSIDE RECORDS SUMMARY | 2024-03-26 10:05 | XMS_ITS | Encounter Summary ---
Author Organization [facility] Address [address] [place] [address] Care Team Providers Care M1 Armor Crewman Name Role Phone Beverly Tineo DO Primary Care Provider +1- [phone] Adriano Schwab MD Unavailable [phone] Encounter Details Date Type Department Care Team (Late st Contact Info) Description 11/18/2020 Ancillary Orders [facility] [address] [place] [phone] Provider, MD Flako [address] [place] [phone] Social History Tobacco Use Types Packs/Day Years [...] Description 04/24/2024 8:00 AM EDT Office Visit [facility] Primary Care [place] [address] [place], [place] [address] Beverly Tineo DO [address] [place], [place] [address] Follow up in about 1 year (around 04/09/2024) for Preventive Adult Physical. documented as of this encounter Results * MG TRANSFER OF OUTSIDE FILMS (11/18/2020 12:10 AM EDT) Narrative IMAGING - 11/18/2020 12:03 PM EDT This order has been auto-finalized and does not contain a result. Procedure Note Chinmay Vazquez, RT - 11/18/2020 This order has been auto-finalized and does not contain a result. us Cutover Provider IMG BI PROCEDURES Final Resu lt Performing Organization Address [facility] Co de Phone Number IMAGING * MG TRANSFER OF OUTSIDE FILMS (11/18/2020 12:05 AM EDT) Narrative IMAGING - 11/18/2020 12:02 PM EDT This order has been auto-finalized and does not contain a result. us Cutover Provider MD DAVIS BI PROCEDURES Final Resu lt Performing Organization Address [facility] Co de Phone Number IMAGING * MG TRANSFER OF OUTSIDE FILMS (11/18/2020 12:00 AM EDT) Narrative IMAGING - 11/18/2020 12:02 PM EDT This order has been auto-finalized and does not contain a result. Procedure Note Chinmay Vazquez, RT - 11/18/2020 This order has been auto-finalized and does not contain a result. us Cutover Provider IMG BI PROCEDURES Final Resu lt Performing Organization Address [facility] Co de Phone Number IMAGING documented in this encounter Visit Diagnoses Not on filedocumented in this encounter Additional Health Concerns Infection Onset Date Last Indicated Resolved Time COVID-19 (rule out) 05/30/2021 05/30/2021 05/31/19 22 7:14 PM EDT documented as of this encounter Care Teams M1 Armor Crewman Relationship Specialty Start Date End Date Beverly Tineo DO 147 [place] [address] PCP - General Internal Medicine 09/08/20 Adriano Schwab MD [address] [facility] [address] [place] [address] Referring Physician Gastroenterology 04/10/23 documented as of this encounter
--- OUTSIDE RECORDS SUMMARY | 2024-03-26 10:05 | XMS_ITS | Encounter Summary ---
Author Organization [facility] Address [address] [place] [address] Care Team Providers Care Detention Sergeant Name Role Phone Beverly Tineo DO Primary Care Provider +1- [phone] Adriano Schwab MD Unavailable [phone] Encounter Details Date Type Department Care Team (Late Contact Info) Description 05/24/2021 Procedure Pass [facility] ([place] Scan) [address] [place] [id number] Social History Tobacco Use Types Packs/Day Years Used Date Smoking Tobacco: Former Smokeless Tobacco: Never Alcohol Use Standard Drinks/Week Comments Yes 0 (1 standard drink = 0.6 oz pur e alcohol) PHQ-2 Answer Date Recorded Patient Health Questionnaire-2 Score 0 04/04/2021 Comments No Sex and Gender Information Value Date Recorded Sex Assigned at Not on file Legal Sex Female 11:27 AM EDT Gender Identity Not on file Sexual Orientation Not on file COVID-19 Exposure Response Date Recorded In the last month, have you been in contact with someone who was confirmed or suspected to have Coronavirus / COVID-19? No / Unsure 05/24/2021 3:00 PM EDT documented as of this encounter Plan of Treatment Upcoming Encounters Date Type Department Care Team (Late Contact Info) Description 04/24/2024 8:00 AM EDT Office Visit [facility] Primary Care [place] [address] [place], [place] [address] Beverly Tineo DO [address] [place], [place] [phone] Follow up in about 1 year (around 04/09/2024) for Preventive Adult Physical. documented as of this encounter Visit Diagnoses Not on filedocumented in this encounter Additional Health Concerns Infection Onset Date Last Indicated Resolved Time COVID-19 (rule out) 05/30/2021 05/30/2021 05/31/19 22 7:14 PM EDT Assessment Noted Time PHQ-9 Depression Total Score: 2 04/04/19 22 7:42 AM EST documented as of this encounter Care Teams Detention Sergeant Relationship Specialty Start Date End Date Beverly Tineo DO [address] [place] [address] PCP - General Internal Medicine 09/08/20 Adriano Schwab MD [address] [address] [place] [address] Referring Physician Gastroenterology 04/10/23 documented as of this encounter
--- OUTSIDE RECORDS SUMMARY | 2024-03-26 10:05 | XMS_ITS | Clinical Summary ---
Author Organization [facility] Address [address] [place] [address] Care Team Providers Care Tree Killer Name Role Phone Beverly Tineo [place] GALVEZ Primary Care Provider +1- [phone] Allergies No known active allergies Medications Medication Sig Dispensed Refills Start Date End Date Status divalproex (DEPAKOTE) 250 MG EC tablet Take 250 mg by mouth 2 (two) times a day. 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 Social History Tobacco Use Types Packs/Day Years Used Date Smoking Tobacco: Never Smokeless Tobacco: Never Alcohol Use Standard Drinks/Week Comments Yes 0 (1 standard drink = 0.6 oz pur e alcohol) social Sex and Gender Information Value Date Recorded Sex Assigned at Not on file Gender Identity Not on file Sexual Orientation Not on file Job Start Date Occupation Industry Not on file Not on file Not on file Last Filed Vital Signs Vital Sign Reading Time Taken Comments Blood Pressure 114/71 08/21/2023 10:06 AM EDT Pulse 76 08/21/2023 10:06 AM EDT Temperature 36.6 ??C (97.9 ??F) 08/21/2023 10:06 AM E DT Respiratory Rate - - Oxygen Saturation 100% 08/21/2023 10:06 AM EDT Inhaled Oxygen Concentration - - Weight 78.5 kg (173 lb) 08/21/2023 10:06 AM EDT Height 172.7 cm (5' 8 ) 07/20/2021 11:16 AM EDT Body Mass Index 26.3 07/20/2021 11:16 AM EDT Plan of Treatment Health Maintenance Due Date Last Done Comments Depression Screening 1970 Preventative Health Evaluation 02/15/1976 DTap / Tdap / Td (1 - Tdap) 1977 Colon Cancer Screening (Colonoscopy) 2003 Breast Cancer Screening (Mammogram) 02/15/2008 Shingrix-Zoster Vaccine (1 o f 2) 02/15/2008 Fall Risk Assessment 2023 Osteoporosis Screening (DEXA Scan) 2023 Pneumococcal Vaccine (1 of 1 - PCV) 2023 COVID-19 Vaccine (3 - 2023-2 5 season) 2023 05/13/2020, 04/15/2020 Influenza Vaccine (#1) 2023 RSV Adult > 60+ Yrs or (1 - 1-dose 75+ series) 2033 Hepatitis C Screening Completed 04/17/2023 Hepatitis B Vaccines Aged Out No long er eligible based on patient's age to complete this topic RSV Ped < 20 months Aged Out No longe r eligible based on patient's age to complete this topic Care Teams Tree Killer Relationship Specialty Start Date End Date Beverly Tineo DO [address] [facility] 1 [facility] [place] [phone] PCP - General Hospitalist Medicine 08/31/22
--- OUTSIDE RECORDS SUMMARY | 2024-03-26 10:05 | XMS_ITS | Clinical Summary ---
Author Organization [facility] Address [address] [place] [address] Care Team Providers Care Occupational Health Technician Name Role Phone Beverly Tineo Primary Care Provider + Allergies No known active allergies Medications divalproex (DEPAKOTE) [address] tablet Take 1 tablet (250 mg total) by mouth 2 (two) times a day. 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 10/31/2017 Encounters Date Type Department Care Team Description 03/17/2024 Telephone [facility] Hematology Oncology [address] [place] [address] Gabriel Tripp MD Request For Order(s) (reg) from Last 3 Months Immunizations Name Administration Dates Next Due Moderna SARS-CoV-2 COVID-19, mRNA, LNP-S, preservative free 05/13/2020,04/15/2020 SARS-COV-2 (COVID-19) Vaccine, Unspecified 05/13,04/15/2020 Surgical History Surgery Date Site/Laterality Comments APPENDECTOMY PROCEDURE:APPENDECTOMY Medical History Medical History Date Comments Hemochromatosis DX:Hemochromatos is Seizures (CMS/HCC) DX:Seizures ( HCC) GERD (gastroesophageal reflux disease) DX:GERD (gastroesophageal reflux disease) Vitamin D deficiency DX:Vitamin D deficiency Lumbar radiculopathy DX:Lumbar r adiculopathy Chronic allergic conjunctivitis DX:Chronic allergic conjunctivitis Social History Tobacco Use Types Packs/Day Years Used Date Smoking Tobacco: Never Smokeless Tobacco: Never Alcohol Use Standard Drinks/Week Comments Yes 0 (1 standard drink = 0.6 oz pur e alcohol) Comments Unknown Sex and Gender Information Value Date Recorded Sex Assigned at Not on file Legal Sex Female 6:44 PM EST Gender Identity Not on file Sexual Orientation Not on file Obstetrics History Last Filed Vital Signs Vital Sign Reading Time Taken Comments Blood Pressure 114/71 08/21/2023 10:06 AM EDT Sitting Left arm Pulse 76 08/21/2023 10:06 AM EDT Temperature - - Respiratory Rate - - Oxygen Saturation - - Inhaled Oxygen Concentration - - Weight 78.5 kg (173 lb) 08/21/2023 10:0 6 AM EDT Height 172.7 cm (5' 8 ) 07/20/2021 11:1 6 AM EDT Body Mass Index 26.3 07/20/2021 11:16 AM EDT Plan of Treatment Upcoming Encounters Date Type Department Care Team (Late st Contact Info) Description 08/20/2024 10:00 AM EDT Office Visit [facility] Hematology Oncology [address] [place] [phone] Gabriel Tripp MD [address] [place] [address] Health Maintenance Due Date Last Done Comments Breast Cancer Screening 1958 DTaP,Tdap,and Td Vaccines (1 - Tdap) 1977 Pneumococcal Vaccine: 50+ Years (1 of 1 - PCV) 02/15/2008 Zoster Vaccines (1 of 2) 02/15/2008 Colorectal Cancer Screening: Colonoscopy 01/12/2022 Depression Screening 01/12/2022 Medicare Annual Wellness Visit 01/12/2022 Osteoporosis Screening (Bone Density Screening) 01/12/2022 Social Influencers of Health Screening 01/12/2022 Falls Risk Assessment 2023 COVID-19 Vaccine ( season) 2023 05/13/2020, 05/13/2020, 04/15/2020, Additional history exists Influenza Vaccine (#1) 2023 Cholesterol Screening (Lipid Panel) 04/16/2028 04/17/2023 RSV Immunization Patients 60+ Years Old (1 - 1-dose 75+ series) 2033 Hepatitis C Screening Completed 04/17/2023 HIB Vaccines Aged Out No longer eligi ble based on patient's age to complete this topic HPV Vaccines Aged Out No longer eligi ble based on patient's age to complete this topic Hepatitis A Vaccines Aged Out No long er eligible based on patient's age to complete this topic Hepatitis B Vaccines Aged Out No long er eligible based on patient's age to complete this topic IPV Vaccines Aged Out No longer eligi ble based on patient's age to complete this topic MMR Vaccines Aged Out No longer eligi ble based on patient's age to complete this topic Meningococcal ACWY Vaccine Aged Out N o longer eligible based on patient's age to complete this topic Meningococcal B Vacine Aged Out No lo nger eligible based on patient's age to complete this topic RSV Immunization Patients Under 20 months Aged Out No longer eligible based on patient's age to complete this topic Varicella Vaccines Aged Out No longer eligible based on patient's age to complete this topic Procedures Procedure Name Priority Date/Time Associated Diagnosis Comments HEPATITIS C SCREENING Routine 04/17/2023 LIPID PANEL Routine 04/17/2023 from Last 3 Months or Most Recently Relevant to Health Maintenance Results * Hepatitis C Screening (04/17/2023) Hepatitis C Screening abstracted Historical Provider HEALTH MAINTENANCE Final Result * Lipid panel (04/17/2023) LDL/HDL Ratio 0 Comment:no interpretation Triglycerides 0 mg/dL Comment:no interpretation Cholesterol 0 mg/dL Comment:no interpretation HDL 0 mg/dL Comment:no interpretation LDL Cholesterol 0 mg/dL Comment:no interpretation Blood Venous blood specimen / Unknown Historical Provider LAB BLOOD ORDERABLES l Result from Last 3 Months or Most Recently Relevant to Health Maintenance Insurance [employer] MEDICARE Care Teams Occupational Health Technician Relationship Specialty Start Date End Date Beverly Tineo DO [address] [place] [address] PCP - General 08/31/22
--- OUTSIDE RECORDS SUMMARY | 2024-03-26 10:05 | XMS_ITS | Encounter Summary ---
Author Organization [facility] Address [address] [place] [address] Care Team Providers Care Wire Spinner Name Role Phone Beverly Tineo DO Primary Care Provider +1- [phone] Adriano Schwab MD Unavailable [phone] Encounter Details Date Type Department Care Team (Late st Contact Info) Description 05/10/2021 Scanned Document [facility] [address] [place] [address] Beverly Tineo DO [address] [place], [place] [address] [facility] 05/05/2021 Social History Tobacco Use Types Packs/Day Years [...] Description 04/24/2024 8:00 AM EDT Office Visit [facility] [address] [facility], [place] [address] Beverly Tineo DO [address] [place], [place] [address] Follow up in about 1 year (around [...] documented as of this encounter Care Teams Wire Spinner Relationship Specialty Start Date End Date Beverly Tineo DO [address] [place] [address] PCP - General Internal Medicine 09/08/20 Adriano Schwab MD [address] [place] [address] [place] [phone] Referring Physician Gastroenterology 04/10/23 documented as of this encounter
--- OUTSIDE RECORDS SUMMARY | 2024-03-26 10:05 | XMS_ITS | Encounter Summary ---
Author Organization [facility] Address [address] [place] [address] Care Team Providers Care Virology Teacher Name Role Phone Beverly Tineo DO Primary Care Provider +1- [phone] Adriano Schwab MD Unavailable [phone] Encounter Details Date Type Department Care Team (Late st Contact Info) Description 11/23/2021 Scanned Document [facility] [address] [place] [address] Beverly Tineo DO [address] [place], [place] [address] Orthopedic 11/15/21 Social History Tobacco Use Types Packs/Day Years [...] Description 04/24/2024 8:00 AM EDT Office Visit [facility] [address] [facility] [place] [address] Beverly Tineo DO [address] [place], [place] [address] Follow up in about 1 year (around 04/09/2024) for Preventive Adult Physical. documented as of this encounter Visit Diagnoses Not on filedocumented in this encounter Additional Health Concerns Assessment Noted Time PHQ-9 Depression Total Score: 2 04/04/19 22 7:42 AM EST documented as of this encounter Care Teams Virology Teacher Relationship Specialty Start Date End Date Beverly Tineo DO [address] [place] [address] PCP - General Internal Medicine 09/08/20 Adriano Schwab MD [address] [place] [address] Referring Physician Gastroenterology 04/10/23 documented as of this encounter
--- OUTSIDE RECORDS SUMMARY | 2024-03-26 10:05 | XMS_ITS | Encounter Summary ---
Author Organization [facility] Address [address] [place] [address] Care Team Providers Care Vulnerability Researcher Name Role Phone Beverly Tineo DO Primary Care Provider +1- [phone] Adriano Schwab MD Unavailable [phone] Encounter Details Date Type Department Care Team (Late Contact Info) Description 09/01/2022 Scanned Document [facility] [address] [place] [address] Beverly Tineo DO [address] [place] [address] [id number] [facility] Dr. Rios 08/31/22 Social History Tobacco Use Types Packs/Day Years [...] Description 04/24/2024 8:00 AM EDT Office Visit [facility] [address] [facility], [place] [phone] Beverly Tineo DO [address] [place] [address] Follow up in about 1 year (around 04/09/2024) for Preventive Adult Physical. documented as of this encounter Visit Diagnoses Not on filedocumented in this encounter Additional Health Concerns Assessment Noted Time PHQ-9 Depression Total Score: 1 04/07/19 23 2:04 PM EST documented as of this encounter Care Teams Vulnerability Researcher Relationship Specialty Start Date End Date Bevelry Tineo DO [address] [place] [address] PCP - General Internal Medicine 09/08/20 Adriano Schwab MD [address] [employer] [address] [place] [address] Referring Physician Gastroenterology 04/10/23 documented as of this encounter
--- OUTSIDE RECORDS SUMMARY | 2024-03-26 10:05 | XMS_ITS | Encounter Summary ---
Author Organization [facility] and [facility] Address [address] [place] [phone] Care Team Providers Care Coat Hanger Shaper Machine Operator Name Role Phone Beverly Tineo DO Primary Care Provider + Encounter Details Date Type Department Care Team ([facility] Contact Info) Description 11/30/2021 Scanned Document [facility] SCHEDULING [address] [place], [place] [phone] Provider, Historical . Social History Tobacco Use Types Packs/Day Years Used Date Smoking Tobacco: Never Assessed Comments Unknown Sex and Gender Information Value Date Recorded Sex Assigned at Not on file Legal Sex Female 10:56 AM EDT Gender Identity Not on file Sexual Orientation Not on file documented as of this encounter Plan of Treatment Not on file documented as of this encounter Procedures Procedure Name Priority Date/Time Associated Diagnosis Comments ANORECTAL MANOMETRY Routine 05/25/2020 PATHOLOGY REPORT (L) Routine 03/10/2019 SIGMOIDOSCOPY (FLEX SIG) (IMAGES) Routine 03/10/2019 PATHOLOGY REPORT (L) Routine 10/09/2017 COLONOSCOPY (IMAGES) Routine 10/09/2017 EGD (IMAGES) Routine 10/09/2017 COLONOSCOPY (IMAGES) Routine 06/21/2016 PATHOLOGY REPORT (L) Routine 06/20/2016 documented in this encounter Results * Anorectal Manometry (05/25/2020) us Historical Provider GI PROCEDURE ORDERABLES l Result * Sigmoidoscopy (Flex Sig) (03/10/2019) Result [facility] Provider GI PROCEDURE ORDERABLES l Result * Pathology report (L) (03/10/2019) Blood Result [facility] Provider PATHOLOGY/CYTOLOGY ORDERABLE S Final Result * Colonoscopy (10/09/2017) Result [facility] Provider GI PROCEDURE ORDERABLES l Result * EGD (10/09/2017) Result [facility] Provider GI PROCEDURE ORDERABLES l Result * Pathology report (L) (10/09/2017) Blood Result [facility] Provider PATHOLOGY/CYTOLOGY ORDERABLE S Final Result * Colonoscopy (06/21/2016) Result [facility] Provider GI PROCEDURE ORDERABLES l Result * Pathology report (L) (06/20/2016) Blood Result [facility] Provider PATHOLOGY/CYTOLOGY ORDERABLE S Final Result documented in this encounter Visit Diagnoses Not on filedocumented in this encounter Care Teams Coat Hanger Shaper Machine Operator Relationship Specialty Start Date End Date Beverly Tineo DO [address] [place] [address] PCP - General Family Medicine 07/12/22 documented as of this encounter
--- OUTSIDE RECORDS SUMMARY | 2024-03-26 10:05 | XMS_ITS | Clinical Summary ---
Author Organization [facility] Address [address] [place] [address] Care Team Providers Care Communications Media Professor Name Role Phone Beverly Tineo DO Primary Care Provider [phone]- [phone] Reagan An MD Unavailable [phone] Allergies No known active allergies Medications Medication Sig Dispensed Refills Start Date End Date Status divalproex (DEPAKOTE) [address] TAKE 1 TABLET IN THE MORNING AND 2 TABLETS AT BEDTIME WITH FOOD 02/10/2022 Active estradiol (ESTRACE) 0.01 % vaginal cream Insert into the vagina as needed. 08/31/2022 Active acetaminophen (TYLENOL) 325 MG tabletIndications:Re ctal prolapse Take 3 tablets (975 mg total) by mouth every 6 (six) hours around the clock. 12/09/2022 Active oxyCODONE (ROXICODONE) 5 MG immediate release tabletIndications:Re ctal prolapse Take 1 tablet (5 mg total) by mouth every 3 (three) hours as needed for moderate pain. Max Daily Amount: 40 mg 16 tablet 12/09/2022 Active psyllium (METAMUCIL) 58.6 % packet Take 1 packet by mouth daily. Active Active Problems Problem Noted Date Diagnosed Date Rectal prolapse 12/04/2022 GERD (gastroesophageal reflux disease) Assessment & Plan (12/05/2022 10:18 AM EDT): Controlled without medications Splenic artery aneurysm Assessment & Plan (12/05/2022 10:20 AM EDT): following Dr. Guillen from [facility], vascular. Patient completes annual CT scans to monitor stability. Her last Ct was about 1 month ago and she reports that it is stable in size. Epilepsy Assessment & Plan (12/05/2022 10:21 AM EDT): Controlled with Depakote, last absence seizure was about 20 years ago. She is on the same regimen since she was about 15 years old. Scleroderma Overview (12/05/2022): Following kendall Quevedo in [facility], overall stable per patient Hemochromatosis Assessment & Plan (12/05/2022 10:24 AM EDT): Following Dr. Koroma in [facility] ([facility]), stable per patient with phlebotomy every 6 months, last 08/2022. Family History Medical History Relation Name Comments Colon cancer Mother Diabetes Sister Relation Name Status Comments Mother Sister Social History Tobacco Use Types Packs/Day Years Used Date Smoking Tobacco: Former Cigarettes Smokeless Tobacco: Never Tobacco Cessation:Counseling Given: Not Answered Comments:Quit age 28 Alcohol Use Standard Drinks/Week Comments Yes 0 (1 standard drink = 0.6 oz pur e alcohol) occasional - few times a month AUDIT-C Answer Date Recorded Q1: How often do you have a drink containing alc ohol? 2-4 times a month 12/05/2022 Q2: How many drinks containi ng alcohol do you have on a typical day when you are drinking? 1 or 2 12/05/2022 Q3: How often do you have si x or more drinks on one occasion? Never 12/05/2022 [facility] - Occupational Stress Questionnaire Answer Date Recorded Do you feel stress - tense, restless, nervous, or anxious, or unable to sleep at night because your mind is troubled all the time - these days? Not at all 11/28/2022 Physical Activity Answer Date Recorded On average, how many days pe r week do you engage in moderate to strenuous exercise (like a brisk walk)? 7 11/28/2022 On average, how many minutes do you exercise per day at this level? 20 11/28/2022 Sex and Gender Information Value Date Recorded Sex Assigned at Female 07/24/2022 9:20 AM EDT Gender Identity Female 07/24/2022 9:20 AM EDT Sexual Orientation Heterosexual (straight) 07/24 9:20 AM EDT Last Filed Vital Signs Vital Sign Reading Time Taken Comments Blood Pressure 124/76 03/19/2023 1:53 PM EST Pulse 79 03/19/2023 1:53 PM EST Temperature 36.8 ??C (98.3 ??F) 12/09/2022 7:51 AM ED T Respiratory Rate 18 12/09/2022 7:51 AM EDT Oxygen Saturation 97% 12/09/2022 7:51 AM EDT Inhaled Oxygen Concentration - - Weight 75.8 kg (167 lb) 03/19/2023 1:53 PM EST Height 170.2 cm (5' 7 ) 03/19/2023 1:53 PM EST Body Mass Index 26.16 03/19/2023 1:53 PM EST Plan of Treatment Health Maintenance Due Date Last Done Comments Hepatitis C Virus Screening 1958 HIV Screening 1971 DTaP/Tdap/Td Vaccines (1 - Tdap) 1977 Pap Smear (Ages 21-65) 1979 Mammogram 1998 Colonoscopy 2003 Pneumococcal Vaccines 50+ (1 of 1 - PCV) 02/15/2008 Zoster (Shingles) Vaccine (1 of 2) 02/15/2008 DXA Bone Density (Females,Ages 65 and older) 2023 Influenza Vaccine 09/06/2023 COVID-19 Vaccine (3 - 2023-2 5 season) 2023 05/13/2020, 04/15/2020 RSV Vaccine 60 years and older and Patients (1 - 1-dose 75+ series) 2033 Hepatitis B Vaccines Aged Out No long er eligible based on patient's age to complete this topic Medical Devices Implanted Type Area Linemarker Device Identifier Shelf Expiration Date Model / Serial / Lot [id number] Mesh Surgical Mod Kugel 5x3in Hrn Sterl Lg Oval - [id number] Implanted:Qty: 1 on 12/07/2022 by Alexa Perez MD at [facility] Mesh N/A: Pelvis [employer] - [employer] 12/02/2026 [id number] / / [id number] Advance Directives * Full Code (Latest Code Status on File) Date Activated Date Inactivated Comments 12/07/2022 4:25 PM * Full Code Date Activated Date Inactivated Comments 12/07/2022 9:51 AM 12/07/2022 4:25 PM Care Teams Communications Media Professor Relationship Specialty Start Date End Date Beverly Tineo DO [address] [place] [address] PCP - General Internal Medicine 12/07/22 Reagan An MD [address] [place] [address] Physician Urogynecology 11/28/22
--- OUTSIDE RECORDS SUMMARY | 2024-03-26 10:05 | XMS_ITS | Encounter Summary ---
Author Organization [facility] Address [address] [place] [address] Care Team Providers Care Ground Hand Name Role Phone Beverly Tineo DO Primary Care Provider [phone] Adriano Schwab MD Unavailable [phone] Reason for Referral * Imaging (Routine) - Closed Specialty Diagnoses / Procedures Referred By Contac t Referred To Contact Radiology Diagnoses Breast pain, right Procedures MG BREAST DIAGNOSTIC TOMOSYNTHESIS BILATERAL DIAGNOSTIC Mammogram breast tomosyntheses RIGHT Beverly Tineo DO [address] [place] [address] Phone: tel: fax: [facility] Radiology - Central Scheduling [place] Phone: tel: fax: Referral ID Status Reason Start Date Expiration Date V isits Requested Visits Authorized [id number] Closed Perform Procedure 11/17/2020 05/19/2022 1 1 Encounter Details Date Type Department Care Team (Late st Contact Info) Description 12/01/2020 Ancillary Orders [facility] Primary [facility] [address] [place], [place] [address] Beverly Tineo DO [address] [place], [place] [address] Breast pain, right Social History Tobacco Use Types Packs/Day Years [...] have Coronavirus / COVID-19? No / Unsure 12/01/2020 11:59 AM EDT documented as of this encounter Plan of Treatment Upcoming Encounters Date Type Department Care Team (Late st Contact Info) Description 04/24/2024 8:00 AM EDT Office Visit [facility] [address] [facility], [place] [id number] Beverly Tineo DO [address] [facility], [place] [address] Follow up in about 1 year (around 04/09/2024) for Preventive Adult Physical. documented as of this encounter Results * MG BREAST DIAGNOSTIC TOMOSYNTHESIS BILATERAL (12/01/2020 12:54 PM EDT) Anatomical Region Laterality Modality Breast Bilateral Mammography 12/01/2020 12:5 8 PM EDT Impressions 12/01/2020 1:39 PM EDT No mammographic or sonographic evidence of malignancy in the right breast. Recommend clinical follow-up for patient's right-sided breast pain. No mammographic evidence of malignancy in the left breast. BREAST:Right RECOMMENDATION:Annual screening mammogram in 1 year BREAST:Left RECOMMENDATION:Annual screening mammogram in 1 year BIRADS:1, Negative Narrative 12/01/2020 1:39 PM EDT CLINICAL INFORMATION:Breast pain, right PROTOCOL: ??Diagnostic mammogram and tomography with CAD monitored by the Radiologist. (accession [id number]), Grayscale focused imaging of the breast. (accession [id number]) COMPARISON: Prior exams from 11/10/2019, 09/24/2018, 03/14/2017 BREAST DENSITY:There are scattered areas of fibroglandular density. FINDINGS: No new mass, suspicious calcifications, or architectural distortion. Accounting for differences in technique and patient positioning, there has been no significant interval change. Targeted right breast ultrasound was performed. No suspicious sonographic abnormality. Procedure Note Francine Boo MD - 12/01/2020 CLINICAL INFORMATION:Breast pain, right PROTOCOL: Diagnostic mammogram and tomography with CAD monitored by theRadiologist. (accession [id number]), Grayscale focused imaging of the breast.(accession [id number]) COMPARISON: Prior exams from 11/10/2019, 09/24/2018, 03/14/2017 BREAST DENSITY:There are scattered areas of fibroglandular density. FINDINGS: No new mass, suspicious calcifications, or architectural distortion.Accounting for differences in technique and patient positioning, there hasbeen no significant interval change. Targeted right breast ultrasound was performed. No suspicious sonographicabnormality. IMPRESSION: No mammographic or sonographic evidence of malignancy in the right breast.Recommend clinical follow-up for patient's right-sided breast pain. No mammographic evidence of malignancy in the left breast. BREAST:Right RECOMMENDATION:Annual screening mammogram in 1 year BREAST:Left RECOMMENDATION:Annual screening mammogram in 1 year BIRADS:1, Negative us Beverly Tineo DO IMG BI PROCEDURES Final Re sult documented in this encounter Visit Diagnoses Diagnosis Breast pain, right Breast pain, right documented in this encounter Additional Health Concerns Infection Onset Date Last Indicated Resolved Time COVID-19 (rule out) 05/30/2021 05/30/2021 05/31/19 22 7:14 PM EDT documented as of this encounter Care Teams Ground Hand Relationship Specialty Start Date End Date Beverly Tineo DO [address] [place] [address] PCP - General Internal Medicine 09/08/20 Adriano Schwab MD [address] [place] [phone] Referring Physician Gastroenterology 04/10/23 documented as of this encounter
--- OUTSIDE RECORDS SUMMARY | 2024-03-26 10:05 | XMS_ITS | Encounter Summary ---
Author Organization [facility] Address [address] [place] [address] Care Team Providers Care Reaming Machine Tender Name Role Phone Beverly Tineo DO Primary Care Provider +1- [phone] Adriano Schwab MD Unavailable [phone] Encounter Details Date Type Department Care Team (Late st Contact Info) Description 01/17/2023 Scanned Document [facility] [address] [place] [address] Beverly Tineo DO [address] [place], [place] [address] Digestive Disease 01/17/23 Social History Tobacco Use Types Packs/Day Years [...] Description 04/24/2024 8:00 AM EDT Office Visit [facility] [address] [place], [place] [address] Beverly Tineo DO [address] [place] [address] Follow up in about 1 year (around 04/09/2024) for Preventive Adult Physical. documented as of this encounter Visit Diagnoses Not on filedocumented in this encounter Additional Health Concerns Assessment Noted Time PHQ-9 Depression Total Score: 1 04/07/19 23 2:04 PM EST documented as of this encounter Care Teams Reaming Machine Tender Relationship Specialty Start Date End Date Beverly Tineo DO [address] [place] [address] PCP - General Internal Medicine 09/08/20 Adriano Schwab MD [address] [facility] [address] [place] [address] Referring Physician Gastroenterology 04/10/23 documented as of this encounter
--- OUTSIDE RECORDS SUMMARY | 2024-03-26 10:05 | XMS_ITS | Encounter Summary ---
Author Organization [facility] Address [address] [place] [address] Care Team Providers Care Electronic Scanner Operator Name Role Phone Beverly Tineo DO Primary Care Provider [phone]- [phone] Adriano Schwab MD Unavailable [phone] Encounter Details Date Type Department Care Team (Late Contact Info) Description 05/24/2021 Procedure Pass [facility] [address] [place] [id number] Social History Tobacco Use Types Packs/Day Years [...] Visit [facility] Primary [facility] [place] [address] [place], [place] [address] Beverly Tineo DO [address] [place], [place] [phone] Follow up in about 1 year (around [...] documented as of this encounter Care Teams Electronic Scanner Operator Relationship Specialty Start Date End Date Beverly Tineo DO [address] [place] [address] PCP - General Internal Medicine 09/08/20 Adriano Schwab MD [address] [place] [address] Referring Physician Gastroenterology 04/10/23 documented as of this encounter
--- OUTSIDE RECORDS SUMMARY | 2024-03-26 10:05 | XMS_ITS | Encounter Summary ---
Author Organization [facility] Address [address] [place] [address] Care Team Providers Care Bitumastic Applier Name Role Phone Beverly Tineo DO Primary Care Provider [phone]- [phone] Adriano Schwab MD Unavailable [phone] Encounter Details Date Type Department Care Team (Late st Contact Info) Description 08/07/2022 Scanned Document [facility] [address] [place] [address] Beverly Tineo DO [address] [place], [place] [address] Gastro 08/07/22 Social History Tobacco Use Types Packs/Day Years [...] Description 04/24/2024 8:00 AM EDT Office Visit [facility] [address] [place], [place] [address] Beverly Tineo DO [address] [place] [address] Follow up in about 1 year (around 04/09/2024) for Preventive Adult Physical. documented as of this encounter Visit Diagnoses Not on filedocumented in this encounter Additional Health Concerns Assessment Noted Time PHQ-9 Depression Total Score: 1 04/07/19 23 2:04 PM EST documented as of this encounter Care Teams Bitumastic Applier Relationship Specialty Start Date End Date Beverly Tineo DO [address] [place] [address] PCP - General Internal Medicine 09/08/20 Adriano Schwab MD [address] [facility] [address] [place] [address] Referring Physician Gastroenterology 04/10/23 documented as of this encounter
--- OUTSIDE RECORDS SUMMARY | 2024-03-26 10:05 | XMS_ITS | Encounter Summary ---
Author Organization [facility] Address [address] [place] [phone] Care Team Providers Care Coding Machine Operator Name Role Phone Beverly Tineo DO Primary Care Provider + Encounter Details Date Type Department Care Team (Late st Contact Info) Description 11/24/2021 Scanned Document [facility] [address] [place] [address] Adriano Schwab MD [address] [place] [phone] Social History Tobacco Use Types Packs/Day Years [...] on filedocumented in this encounter Care Teams Coding Machine Operator Relationship Specialty Start Date End Date Beverly Tineo DO [address] [place] [address] PCP - General Family Medicine 07/12/22 documented as of this encounter
--- OUTSIDE RECORDS SUMMARY | 2024-03-26 10:05 | XMS_ITS | Encounter Summary ---
Author Organization [facility] Address [address] [place] [address] Care Team Providers Care Horologist Apprentice Name Role Phone Beverly Tineo DO Primary Care Provider [phone]- [phone] Adriano Schwab MD Unavailable [phone] Encounter Details Date Type Department Care Team (Late Contact Info) Description 01/25/2023 Scanned Document [facility] [address] [place] [address] Beverly Tineo DO [address] [place] [address] [facility] Lab Results 01/22/23 Social History Tobacco Use Types Packs/Day Years [...] Description 04/24/2024 8:00 AM EDT Office Visit [facility] [address] [place], [place] [address] Beverly Tineo DO [address] [place] [address] Follow up in about 1 year (around 04/09/2024) for Preventive Adult Physical. documented as of this encounter Visit Diagnoses Not on filedocumented in this encounter Additional Health Concerns Assessment Noted Time PHQ-9 Depression Total Score: 1 04/07/19 23 2:04 PM EST documented as of this encounter Care Teams Horologist Apprentice Relationship Specialty Start Date End Date Beverly Tineo DO [address] [place] [address] PCP - General Internal Medicine 09/08/20 Adriano Schwab MD [address] [facility] [address] [place] [address] Referring Physician Gastroenterology 04/10/23 documented as of this encounter
--- OUTSIDE RECORDS SUMMARY | 2024-03-26 10:05 | XMS_ITS | Encounter Summary ---
Author Organization [facility] Address [address] [place] [phone] Care Team Providers Care Specimen Transporter Name Role Phone Beverly Tineo DO Primary Care Provider + Encounter Details Date Type Department Care Team (Late st Contact Info) Description 12/02/2021 Scanned Document [facility] GI Surgery Ana [address] [place] [address] Moris Zavala MD [address] [place] [phone] Social History Tobacco Use Types Packs/Day Years [...] on filedocumented in this encounter Care Teams Specimen Transporter Relationship Specialty Start Date End Date Beverly Tineo DO [address] [place] [address] PCP - General Family Medicine 07/12/22 documented as of this encounter
--- OUTSIDE RECORDS SUMMARY | 2024-03-26 10:05 | XMS_ITS | Encounter Summary ---
Author Organization [facility] Address [address] [place] [address] Care Team Providers Care Market Development Manager Name Role Phone Beverly Tineo DO Primary Care Provider [phone]- [phone] Adriano Schwab MD Unavailable [phone] Encounter Details Date Type Department Care Team (Late Contact Info) Description 09/16/2021 Scanned Document [facility] [address] [facility] [place] [address] Beverly Tineo DO [address] [place], [place] [address] [facility] 09/13/21 Social History Tobacco Use Types Packs/Day Years [...] Office Visit [facility] [address] [facility] [place] [address] Beverly Tineo DO [address] [place], [place] [address] Follow up in about 1 year (around 04/09/2024) for Preventive Adult Physical. documented as of this encounter Visit Diagnoses Not on filedocumented in this encounter Additional Health Concerns Assessment Noted Time PHQ-9 Depression Total Score: 2 04/04/19 22 7:42 AM EST documented as of this encounter Care Teams Market Development Manager Relationship Specialty Start Date End Date Beverly Tineo DO [address] [place] [address] PCP - General Internal Medicine 09/08/20 Adriano Schwab MD [address] [place] [address] Referring Physician Gastroenterology 04/10/23 documented as of this encounter
--- OUTSIDE RECORDS SUMMARY | 2024-03-26 10:05 | XMS_ITS | Encounter Summary ---
Author Organization [facility] Address [address] [place] [address] Care Team Providers Care Room Manager Name Role Phone Beverly Tineo DO Primary Care Provider [phone] Adriano Schwab MD Unavailable [phone] Encounter Details Date Type Department Care Team (Late st Contact Info) Description 10/20/2022 Scanned Document [facility] [address] [place] [address] Beverly Tineo DO [address] [place], [place] [address] Digestive Disease 10/18/22 Social History Tobacco Use Types Packs/Day Years [...] Description 04/24/2024 8:00 AM EDT Office Visit [facility] [address] [place], [place] [address] Beverly Tineo DO [address] [place] [address] Follow up in about 1 year (around 04/09/2024) for Preventive Adult Physical. documented as of this encounter Visit Diagnoses Not on filedocumented in this encounter Additional Health Concerns Assessment Noted Time PHQ-9 Depression Total Score: 1 04/07/19 23 2:04 PM EST documented as of this encounter Care Teams Room Manager Relationship Specialty Start Date End Date Beverly Tineo DO [address] [place] [address] PCP - General Internal Medicine 09/08/20 Adriano Schwab MD 800 [facility] [address] [place] [address] Referring Physician Gastroenterology 04/10/23 documented as of this encounter
--- OUTSIDE RECORDS SUMMARY | 2024-03-26 10:05 | XMS_ITS | Encounter Summary ---
Author Organization [facility] Address [address] [place] [address] Care Team Providers Care Survey Engineer Name Role Phone Beverly Tineo DO Primary Care Provider [phone]- [phone] Adriano Schwab MD Unavailable [phone] Encounter Details Date Type Department Care Team (Late st Contact Info) Description 01/23/2023 Scanned Document [facility] [address] [place] [address] Beverly Tineo DO [address] [place], [place] [address] [facility] 01/23/23 Social History Tobacco Use Types Packs/Day Years [...] Description 04/24/2024 8:00 AM EDT Office Visit [facility] [address] [facility], [place] [address] Beverly Tineo DO [address] [place] [address] Follow up in about 1 year (around 04/09/2024) for Preventive Adult Physical. documented as of this encounter Visit Diagnoses Not on filedocumented in this encounter Additional Health Concerns Assessment Noted Time PHQ-9 Depression Total Score: 1 04/07/19 23 2:04 PM EST documented as of this encounter Care Teams Survey Engineer Relationship Specialty Start Date End Date Beverly Tineo DO [address] [place] [address] PCP - General Internal Medicine 09/08/20 Adriano Schwab MD [address] [facility] [address] [place] [address] Referring Physician Gastroenterology 04/10/23 documented as of this encounter
== END 2024-03-26 09:44 | disposition home or self-care (01) ==
LOC: HO.BBR 09:43
PROVIDERS: Visit Provider Internal Medicine
DX: Z13.89 Encounter for screening for other disorder (principal)

== ENCOUNTER 2024-09-23 10:51 | Outpatient (REF) | payer MEDICARE, SELFPAY ==
--- OUTSIDE RECORDS SUMMARY | 2024-09-23 12:24 | XMS_ITS | Encounter Summary ---
Author Organization [facility] Address [address] [place] [phone] Care Team Providers Care Jewelry Facer Name Role Phone Beverly Tineo DO Primary Care Provider + Encounter Details Date Type Department Care Team ([facility] st Contact Info) Description 03/31/2022 Orders Only Anesthesia [address] [place] [address] Heather Araujo, ELECTROPHYSIOLOGY TECHNOLOGIST [address] [place] [phone] Social History Tobacco Use Types Packs/Day [...] on filedocumented in this encounter Care Teams Jewelry Facer Relationship Specialty Start Date End Date Beverly Tineo DO [address] [place] [phone] PCP - General Family Medicine 07/12/22 documented as of this encounter
--- OUTSIDE RECORDS SUMMARY | 2024-09-23 12:25 | XMS_ITS | Encounter Summary ---
Author Organization [facility] Address [address] [place] [address] Care Team Providers Care Bread Slicer Machine Name Role Phone Beverly Tineo DO Primary Care Provider [phone] Adriano Schwab MD Unavailable [phone] Encounter Details Date Type Department Care Team (Late Contact Info) Description 07/13/2022 Scanned Document [facility] [address] [place] [address] Beverly Tineo DO [address] [place] [phone] Digestive Disease 07/12/22 Social History Tobacco Use [...] Department Care Team (Late Contact Info) Description 05/04/2025 8:15 AM EDT [facility] [address] [place], [place] [address] Beverly Tineo DO [address] [place] [address] cpx documented as of this encounter Visit Diagnoses Not on filedocumented in this encounter Additional Health Concerns Assessment Noted Time PHQ-9 Depression Total Score: 1 04/07/19 23 2:04 PM EST documented as of this encounter Care Teams Bread Slicer Machine Relationship Specialty Start Date End Date Beverly Tineo DO [address] [place] [address] PCP - General Internal Medicine 09/08/20 Adriano Schwab MD [address] [place] [address] Referring Physician Gastroenterology 04/10/23 documented as of this encounter
--- OUTSIDE RECORDS SUMMARY | 2024-09-23 12:25 | XMS_ITS | Clinical Summary ---
Author Organization [facility] Address [address] [place] [address] Phone Care Team Providers Care Inspector Plumbing Name Role Phone Beverly Tineo DO Primary Care Provider + Allergies No known active allergies Medications divalproex (DEPAKOTE) [address] tablet Take 1 tablet (250 mg total) by mouth 2 (two) times a day. 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, CMS/HCC V28) 10/31/2017 Scleroderma (CMS/HCC V24, CMS/HCC V28) 8 Encounters Date Type Department Care Team Description 08/20/2024 10:00 AM EDT Office Visit Hematology Oncology [address] [place] [phone] Gabriel Tripp MD Hereditary hemochromatosis ([facility]/HCC V24) (Primary Dx) from Last 3 Months Immunizations Name Administration Dates Next Due Moderna SARS-CoV-2 COVID-19, mRNA, LNP-S, preservative free 05/13/2020,04/15/2020 SARS-COV-2 (COVID-19) Vaccine, Unspecified 05/13,04/15/2020 Surgical History Surgery Date Site/Laterality Comments APPENDECTOMY PROCEDURE:APPENDECTOMY Medical History Medical History Date Comments Hemochromatosis DX:Hemochromatos is Seizures (CMS/HCC V24, CMS/HCC V28) DX:Seizures (HCC) GERD (gastroesophageal reflux disease) DX:GERD (gastroesophageal reflux [...] Sign Reading Time Taken Comments Blood Pressure 113/62 08/20/2024 9:59 AM EDT Pulse 74 08/20/2024 9:59 AM EDT Temperature 36.9 C (98.4 F) 08/20/2024 9:59 AM EDT Respiratory Rate - - Oxygen Saturation 100% 08/20/2024 9:59 AM EDT Inhaled Oxygen Concentration - - Weight 77.6 kg (171 lb) 08/20/2024 9:59 AM EDT Height 170.2 cm (5' 7 ) 08/20/2024 9:59 AM EDT Body Mass Index 26.78 08/20/2024 9:59 AM EDT Plan of Treatment Upcoming Encounters Date Type Department Care Team (Late st Contact Info) Description 08/20/2025 10:00 AM EDT Office Visit Hematology Oncology [address] [place] [phone] Gabriel Tripp MD [address] [place] [address] Health Maintenance Due Date Last Done Comments Hepatitis A Vaccines (1 of 2 - Risk 2-dose series) 1977 Pneumococcal Vaccine: 50+ Years (1 of 1 - PCV) 02/15/2008 Zoster Vaccines (1 of 2) 02/15/2008 Hepatitis B Vaccines (1 of 3 - Risk 3-dose series) 2018 RSV Immunization Adult Patients (1 - Risk 60-74 years 1-dose series) 2018 Colorectal Cancer Screening: Colonoscopy 01/12/2022 Medicare Annual Wellness Visit 01/12/2022 Social Influencers of Health Screening 01/12/2022 Falls Risk Assessment 2023 COVID-19 Vaccine ( season) 2023 05/13/2020, 05/13/2020, 04/15/2020, Additional history exists Depression Screening 02/06/2024 Influenza Vaccine (#1) 2024 , 12/20/2020, 11/13/2019, Additional history exists DTaP,Tdap,and Td Vaccines (2 - Td or Tdap) 05/24/2025 05/25/2015 Breast Cancer Screening 06/12/2026 06/12/2024 Cholesterol Screening (Lipid Panel) 05/12/2029 05/12/2024, 04/17/2023 Osteoporosis Screening (Bone Density Screening) 06/07/2032 06/07/2022 Hepatitis C Screening Completed 04/17/2023, 024 HIB Vaccines Aged Out No longer eligi [...] age to complete this topic Meningococcal B Vaccine Aged Out No l onger eligible based on patient's age to complete this topic RSV Immunization Patients Under 20 months Aged Out No longer eligible based on patient's age to complete this topic Varicella Vaccines Aged Out No longer eligible based on patient's age to complete this topic Procedures Procedure Name Priority Date/Time Associated Diagnosis Comments HEPATIC FUNCTION PANEL Routine 08/20/2024 10:32 AM EDT Hereditary hemochromatosis ([facility]/HCC V24) IRON AND TIBC Routine 08/20/2024 10:32 AM EDT Hereditary hemochromatosis (CMS/HCC V24) FERRITIN Routine 08/20/2024 10:32 AM EDT Hereditary hemochromatosis (CMS/HCC V24) ..MISCELLANEOUS REFERENCE LAB TEST 08/20/2024 HEPATITIS C SCREENING Routine 04/17/2023 LIPID PANEL Routine 04/17/2023 from Last 3 Months or Most Recently Relevant to Health Maintenance Results * (ABNORMAL) Iron and TIBC (08/20/2024 10:32 AM EDT) Iron 127 40 - 150 mcg/dL LAB CHEMISTRY METHOD 08/20/2024 12:[address] [facility] TIBC 212(L) 250 - 450 mcg/dL LAB CHEMISTRY METHOD 08/20/2024 12:[address] [facility] Iron Saturation 60(H) 15 - 50 % LAB CHEMISTRY METHOD 08/20/2024 12:[address] [facility] Blood Venous blood specimen / Unknown Venipuncture / Unknown 08/20/2024 10:32 AM EDT 08/20/2024 11:06 AM EDT Gabriel Tripp MD LAB BLOOD ORDERABLES Final R esult Performing Organization Address City/[facility]/ZIP Co de Phone Number [facility] [address] [place] [address], * Ferritin (08/20/2024 10:32 AM EDT) Ferritin 48 8 - 252 ng/mL LAB CHEMISTRY METHOD 08/20/2024 12:[address] [facility] Blood Venous blood specimen / Unknown Venipuncture / Unknown 08/20/2024 10:32 AM EDT 08/20/2024 11:06 AM EDT us Gabriel Tripp MD LAB BLOOD ORDERABLES Final R esult [facility] [address] [place] [address], [place] [phone] * (ABNORMAL) Hepatic function panel (08/20/2024 10:32 AM EDT) Total Protein 6.7 6.0 - 8.0 g/dL LAB CHEMISTRY METHOD 08/20/2024 12:[address] [facility] Albumin 3.7 3.2 - 5.0 g/dL LAB CHEMISTRY METHOD 08/20/2024 12:[address] [facility] Total Bilirubin 0.5 0.0 - 1.4 mg/dL LAB CHEMISTRY METHOD 08/20/2024 12:[address] [facility] Bilirubin, Direct 0.1 0.0 - 0.3 mg/dL LAB CHEMISTRY METHOD 08/20/2024 12:[address] [facility] Bilirubin, Indirect 0.4 0.0 - 1.1 mg/dL LAB CHEMISTRY METHOD 08/20/2024 12:[address] [facility] ALT (SGPT) 17 10 - 60 unit/L LAB CHEMISTRY METHOD 08/20/2024 12:[address] [facility] AST (SGOT) 9(L) 10 - 42 unit/L LAB CHEMISTRY METHOD 08/20/2024 12:[address] [facility] Alkaline Phosphatase 44 42 - 121 unit/L LAB CHEMISTRY METHOD 08/20/2024 12:[address] [facility] Blood Venous blood specimen / Unknown Venipuncture / Unknown 08/20/2024 10:32 AM EDT 08/20/2024 11:06 AM EDT Gabriel Tripp MD LAB BLOOD ORDERABLES Final R esult [facility] [address] [place] [address], [place] [phone] * Miscellaneous reference lab test (08/20/2024) Provider Onbase LAB BLOOD ORDERABLES Final Re sult * Hm Hepatitis C Screening (04/17/2023) Hepatitis C Screening [...] Maintenance Insurance [employer] MED[employer]ARE Care Teams Inspector Plumbing Relationship Specialty Start Date End Date Beverly Tineo DO [address] [place] [address] PCP - General 08/31/22
--- OUTSIDE RECORDS SUMMARY | 2024-09-23 12:25 | XMS_ITS | Clinical Summary ---
Author Organization [facility] Address [address] [place] [address] Care Team Providers Care Invoice Control Clerk Name Role Phone Beverly Tineo [place] GALVEZ Primary Care Provider +1- [phone] Allergies No known active allergies Medications Medication [...] 76 08/21/2023 10:06 AM EDT Temperature 36.6 C (97.9 F) 08/21/2023 10:06 AM EDT Respiratory Rate - - Oxygen [...] season) 2023 05/13/2020, 04/15/2020 Influenza Vaccine (#1) 2024 RSV Adult > 60+ Yrs or (1 - 1-dose 75+ series) 2033 Hepatitis C Screening Completed 04/17/2023 Hepatitis B Vaccines Aged Out No long er eligible based on patient's age to complete this topic RSV Ped < 20 months Aged Out No longe r eligible based on patient's age to complete this topic Care Teams Invoice Control Clerk Relationship Specialty Start Date End Date Beverly Tineo DO [address] [facility] [address] [facility] [place] [phone] PCP - General Hospitalist Medicine 08/31/22
--- OUTSIDE RECORDS SUMMARY | 2024-09-23 12:25 | XMS_ITS | Clinical Summary ---
Author Organization [facility] Address [address] [place] [address] Care Team Providers Care Florist Manager Name Role Phone Beverly Tineo DO Primary Care Provider [phone]- [phone] Reagan An MD Unavailable [phone] Allergies No known active allergies Medications divalproex (DEPAKOTE) [address] TAKE 1 TABLET IN THE MORNING AND 2 TABLETS AT BEDTIME WITH FOOD 02/10/2022 Active estradiol (ESTRACE) 0.01 % vaginal cream Insert into the vagina as needed. 08/31/2022 Active acetaminophen (TYLENOL) 325 MG tabletIndicatio ns:Rectal prolapse Take 3 tablets (975 mg total) by mouth every 6 (six) hours around the clock. 12/09/2022 Active oxyCODONE (ROXICODONE) 5 MG immediate release tabletIndicatio ns:Rectal prolapse Take 1 tablet (5 mg total) [...] 10:20 AM EDT): following Dr. Guillen from [facility], vascular. Patient completes annual CT scans to monitor stability. Her last Ct was about 1 month ago and she reports that it is stable in size. Epilepsy Assessment & Plan (12/05/2022 10:21 AM EDT): Controlled with Depakote, last absence seizure was about 20 years ago. She is on the same regimen since she was about 15 years old. Scleroderma Overview (12/05/2022): Following Dr. Stock, [place] in [facility], overall stable per patient Hemochromatosis Assessment & Plan (12/05/2022 10:24 AM EDT): Following Dr. Koroma in [facility] ([facility]), stable per patient with phlebotomy every [...] more drinks on one occasion? Never 12/05/2022 [facility] of Occupat ional Health - Occupational Stress [...] per day at this level? 20 11/28/2022 Comments No Sex and Gender Information Value Date Recorded Sex Assigned at Female 07/24/2022 9:20 AM EDT Legal Sex Female 1:31 PM EDT Gender Identity Female 07/24/2022 9:20 AM EDT Sexual Orientation Heterosexual (straight) 07/24 9:20 AM EDT Last Filed Vital Signs Vital Sign Reading Time Taken Comments Blood Pressure 124/76 03/19/2023 1:53 PM EST Pulse 79 03/19/2023 1:53 PM EST Temperature 36.8 C (98.3 F) 12/09/2022 7:51 AM EDT Respiratory Rate 18 12/09/2022 7:51 AM EDT Oxygen Saturation 97% 12/09/2022 7:51 AM EDT Inhaled Oxygen Concentration - - Weight 75.8 kg (167 lb) 03/19/2023 1:53 PM EST Height 170.2 cm (5' 7 ) 03/19/2023 1:53 PM EST Body Mass Index 26.16 03/19/2023 1:53 PM EST Plan of Treatment Upcoming Encounters Date Type Department Care Team (Late st Contact Info) Description 10/09/2024 8:30 AM EDT Consult [facility] [address] [place] [phone] Edmar Galdamez MD [address] [place] [phone] Health Maintenance Due Date Last Done Comments Hepatitis C Virus Screening 1958 DTaP/Tdap/Td Vaccines (1 - Tdap) 1977 Mammogram 1998 Colonoscopy 2003 Pneumococcal Vaccines 50+ (1 of 1 - PCV) 02/15/2008 Zoster (Shingles) Vaccine (1 of 2) 02/15/2008 DXA Bone Density (Females,Ages 65 and older) 2023 COVID-19 Vaccine (3 - 2023-2 5 season) 2023 05/13/2020, 04/15/2020 Influenza Vaccine 09/05/2024 RSV Vaccine 60 years and older and Patients (1 - 1-dose 75+ series) 2033 Hepatitis B Vaccines Aged Out No long er eligible based on patient's age to complete this topic Medical Devices Implanted Type Area Assault Amphibious Vehicle Crewman Device Identifier Shelf Expiration Date Model / Serial / Lot [id number] Mesh Surgical Mod Kugel 5x3in Hrn Sterl Lg Oval - [id number] Implanted:Qty: 1 on 12/07/2022 by Alexa Perez MD at [facility] Mesh N/A: [employer] - [employer] 12/02/2026 [id number] / / [id number] Insurance Member Subscriber Plan / Payer (Ef fective 2023-Present) Name:Ondina Soto Relation to Subscriber:Self Name:Ondina Soto Payer ID:[id number] (NAIC) Type:Not on file Address: [place] [phone] Advance Directives * Full Code (Latest Code Status on File) Date Activated Date Inactivated Comments 12/07/2022 4:25 PM * Full Code Date Activated Date Inactivated Comments 12/07/2022 9:51 AM 12/07/2022 4:25 PM Care Teams Florist Manager Relationship Specialty Start Date End Date Beverly Tineo DO [address] [place] [address] PCP - General Internal Medicine 12/07/22 Reagan An MD [address] [address] Physician Urogynecology 11/28/22
--- OUTSIDE RECORDS SUMMARY | 2024-09-23 12:25 | XMS_ITS ---
Author Name [facility] Organization Unknown History of Medication Use Medication Directions Dispensed Refills Start Date End Date Stat meloxicam (MOBIC) 15 mg tablet Take 1 tablet (15 mg total) by mouth 1 (one) time each day for 15 days. 09/08/2024 active predniSONE (Deltasone) 20 mg tablet Take 40 mg (2 x 20 mg tablets) once daily for 3 days, THEN 30 mg (1.5 X20 mg tablets) daily by mouth for 3 days then take 20 mg (1 x 20 mg tablets) once daily for 3 days, THEN take 10 mg (0.5 x 20 mg tablet) until gone 09/08/2024 active doxycycline (Vibramycin) 100 mg capsule Take 1 capsule (100 mg total) by mouth in the morning and 1 capsule (100 mg total) before bedtime. Do all this for 21 days. Take with at least 8 ounces (large glass) of water, do not lie down for 30 minutes after. 08/18/2024 09/09/2024 active iohexoL (Omnipaque) 350 mg iodine/mL injection 100 mL 100 mL, intravenous, Once in imaging, contrast, Starting on Sun05/16/24 at 1245, For 1 dose 05/16/2024 05/16/2024 completed sodium chloride 0.9 % flush 60 mL 60 mL, intravenous, Administer over 1 Minutes, Once in imaging, imaging study, Starting on Sun05/16/24 at 1245, For 1 dose 05/16/2024 05/16/2024 completed Apply to affected site on left ankle once daily. 08/15/2023 completed mupirocin (ointment) Apply Twice Daily to affected areas on face x 2-3 weeks 08/15/2023 completed divalproex (Depakote) 250 mg EC tablet TAKE 1 TABLET IN THE MORNING AND 2 TABLETS AT BEDTIME WITH FOOD 05/22/2023 active oxyCODONE (ROXICODONE) 5 MG immediate release tablet Take 1 tablet (5 mg total) by mouth every 3 (three) hours as needed for moderate pain. Max Daily Amount: 40 mg 12/09/2022 12/16/2022 active cholestyramine (QUESTRAN) 4 GM/DOSE powder Take 1 packet (4 g total) by mouth once a week. 10/18/2022 03/19/2023 active estradiol (ESTRACE) 0.01 % vaginal cream PLEASE SEE ATTACHED FOR DETAILED DIRECTIONS 08/31/2022 active colestipoL (Colestid) 1 gram tablet Take 1 tablet (1 g total) by mouth twice a day. 07/12/2022 active clobetasol (cream) Apply twice a day for two weeks to ankles. 11/14/2021 completed clobetasoL (TEMOVATE) 0.05 % cream APPLY TWICE A DAY FOR TWO WEEKS TO ANKLES. 11/14/2021 active Soolantra (cream) Apply to the face once a day 04/04/2021 completed divalproex 02/05/1978 active docusate sodium (Stool Softener) 100 MG tablete Take 1 tablet (100 mg total) by mouth 2 (two) times a day. 03/19/2023 aborted NON FORMULARY REQUEST Take 1 gummy by mouth nightly. 5 mg melatonin & 5mg CBD gummies for sleep 03/19/2023 active divalproex 250 mg tablet,delayed release TAKE 1 TABLET IN THE MORNING AND 2 TABLETS AT BEDTIME WITH FOOD active mupirocin 2 % topical ointment APPLY TWICE DAILY TO AFFECTED AREAS ON FACE X 2-3 WEEKS active divalproex (tablet,delayed release (DR/EC)) 250 mg complete d psyllium (Daily Fiber, psyllium-aspart,) 3.4 gram packet Take 1 packet by mouth 1 (one) time each day. active Problems Problem Status Onset Date Problem Type Date of Resolution Source Vitamin D deficiency active 2021-04-04 ProblemAct [facility] Degeneration of intervertebral disc of lumbar region active 2021-04-04 ProblemAct [facility] Liver cyst active 2021-04-04 ProblemAct [facility] Insomnia active 2021-04-04 ProblemAct [facility] Calcinosis, Raynaud phenomenon, esophageal dysfunction, sclerodactyly, and telangiectasia (CREST) syndrome active 2021-04-04 ProblemAct [facility] Constipation active 2021-04-04 ProblemAct [facility] Incontinence of feces active 2021-04-04 ProblemAct [facility] Female genital symptoms active 2021-04-04 ProblemAct [facility] Family history of colon cancer active 2020-09-30 ProblemAct [facility] Aneurysm of splenic artery active 2021-04-04 ProblemAct [facility] History of palpitations active 2020-09-30 ProblemAct [facility] Multinodular goiter active 2021-04-04 ProblemAct [facility] 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) active 2017-10-31 ProblemAct [facility] Esophageal dysmotility active 2021-04-04 ProblemAct [facility] Cervical radiculopathy active EncounterDiagnosisAct [facility] Microscopic hematuria active 2021-04-04 ProblemAct [facility] Scleroderma active 2017-10-31 ProblemAct [facility] Seizure disorder (CMS/HCC) active 2021-04-04 ProblemAct [facility] Hereditary hemochromatosis active 2017-10-31 ProblemAct [facility] Personal history of COVID-19 active 2022-02-01 ProblemAct [facility] Rectal prolapse active 2022-12-04 ProblemAct [facility] Scleroderma active ProblemAct [facility] Incontinence of feces, unspecified fecal incontinence type active EncounterDiagnosisAct [facility] Splenic artery aneurysm active ProblemAct [facility] Hemochromatosis active ProblemAct [facility] Epilepsy active ProblemAct [facility] GERD (gastroesophageal reflux disease) active ProblemAct [facility] Immunizations Vaccine Date Source Lot Number Status INFLUENZA, HIGH DOSE SEASONA L, PRESERVATIVE FREE 11/27/2023 [facility] [id number] completed Moderna SARS-CoV-2 Vaccination 05/13/2020 [facility] [id number] 1A completed SARS-CoV-2, Unspecified 05/13/2020 [facility] c ompleted Moderna SARS-CoV-2 Vaccination 04/15/2020 [facility] [id number] 1A completed SARS-CoV-2, Unspecified 04/15/2020 [facility] c ompleted Encounters Encounter Type Encounter Reason Primary Diagnosis Location Date Emergency Radiculopathy, cervical region Radiculopathy, cervical region [facility] 09/08/2024 Ambulatory Lyme disease, unspecified Lyme disease, unspecified [facility] 08/18/2024 Ambulatory [facility] 07/31/2024 Ambulatory [facility] 07[facility]31/2024 Ambulatory [facility] 06[facility]25/2024 Ambulatory [facility] 06/25/2024 Ambulatory [facility] 06[facility]25/2024 Ambulatory [facility] 06/19/2024 Ambulatory [facility] 06/19/2024 Ambulatory Encounter for screening mammogram for malignant neoplasm of breast Encounter for screening mammogram for malignant neoplasm of breast [facility] 06/12/2024 Ambulatory [facility] 05/29/2024 Ambulatory [facility] 05/21/2024 Ambulatory Aneurysm of other specified arteries Aneurysm of other specified arteries [facility] 05/16/2024 Ambulatory Encounter for genera l adult medical examination without abnormal findings Encounter for general adult medical examination without abnormal findings [facility] 05/12/2024 Ambulatory Encounter for genera l adult medical examination without abnormal findings Encounter for general adult medical examination without abnormal findings [facility] 05/02/2024 Ambulatory Hereditary hemochromatosis Hereditary hemochromatosis [facility] 12/31/2023 Ambulatory Encounter for immunization Encounter for immunization [facility] 11/27/2023 Ambulatory [facility] 11/16/2023 Ambulatory [facility] 08/15/2023 Ambulatory Encounter for screening mammogram for malignant neoplasm of breast Encounter for screening mammogram for malignant neoplasm of breast [facility] 06/11/2023 Ambulatory Other specified abnormal findings of blood chemistry Other specified abnormal findings of blood chemistry [facility] 05/22/2023 Ambulatory Encounter for genera l adult medical examination without abnormal findings Encounter for general adult medical examination without abnormal findings [facility] 04/17/2023 Ambulatory Encounter for genera l adult medical examination without abnormal findings Encounter for general adult medical examination without abnormal findings [facility] 04/10/2023 Ambulatory Rectal prolapse Rectal prolapse [facility] 03/19/2023 Ambulatory [facility] 01/17/2023 Ambulatory Rectal prolapse Rectal prolapse [facility] 12/25/2022 Inpatient Rectal prolapse Rectal prolapse [facility] 12/07/2022 Ambulatory Encounter for other preprocedural examination Encounter for other preprocedural examination [facility] 12/05/2022 Ambulatory Rectal prolapse Rectal prolapse [facility] 12/04/2022 Ambulatory Rectal prolapse Rectal prolapse [facility] 11/28/2022 Ambulatory Asymptomatic menopausal state [facility] 06/07/2022 Ambulatory Encounter for screening mammogram for malignant neoplasm of breast [facility] 06/07/2022 Ambulatory Full incontinenc e of feces [facility] 04/19/2022 Ambulatory Encounter for ge neral adult medical examination without abnormal findings [facility] 04/07/2022 Ambulatory Full incontinenc e of feces [facility] 04/05/2022 Ambulatory Other specified cough [facility] 02/01/2022 Ambulatory Spinal stenosis, lumbar region without neurogenic claudication [facility] 01/10/2022 Ambulatory Spinal stenosis, lumbar region without neurogenic claudication [facility] 12/27/2021 Ambulatory Spinal stenosis, lumbar region without neurogenic claudication [facility] 12/19/2021 Ambulatory Spinal stenosis, lumbar region without neurogenic claudication [facility] 12/15/2021 Ambulatory Spinal stenosis, lumbar region without neurogenic claudication [facility] 12/13/2021 Ambulatory Spinal stenosis, lumbar region without neurogenic claudication [facility] 12/08/2021 Ambulatory Spinal stenosis, lumbar region without neurogenic claudication [facility] 12/06/2021 Ambulatory Spinal stenosis, lumbar region without neurogenic claudication [facility] 12/01/2021 Ambulatory Spinal stenosis, lumbar region without neurogenic claudication [facility] 11/28/2021 Care Team Organization Name Specialty Phone Email Start Date End [facility] 06/18/2024 [facility] 05/31/2024 [facility] 05/21/2024 [facility] 12/21/2023 024 [facility] 08/13/2023 [facility] 08/13/2023 [place] [facility] 12/07/2022 12/07/2022 [facility] 11/28/202204/23 [facility] 11/28/202212/14 [facility] NO PCP Primary Care 11/28/2022 11/28/2022 [facility] 04/05/2022 09/24/2023 [facility] 04/05/2022 09/24/2023 [facility] 04/05/2022 04/05/2022 [facility] 01/05/2022 [facility] 11/28/202112/06
== END 2024-09-23 10:52 | disposition home or self-care (01) ==
LOC: HO.BBR 10:51
PROVIDERS: PCP Physician Assistant; Visit Provider Internal Medicine
DX: Z13.89 Encounter for screening for other disorder (principal)